=== PATIENT | female | born 1950 | race Caucasian/White ===

== ENCOUNTER 2021-10-24 10:55 | Outpatient (CLI) | payer MEDICARE, OTHER, SELFPAY ==
--- NOTE | ~2021-10-24 | US_ITS ---
US renal BI 10/24/2021 11:24 Procedure: Realtime transabdominal ultrasound of the kidneys and bladder. Indication: History of renal cysts Comparison: 09/18/2017 Findings: Renal echotexture is normal bilaterally without hydronephrosis, contour deforming mass or r enal calculus. There is a right renal cyst measuring 5 cm. The right kidney measures 9.2 cm and left kidney measures 11.3 cm. Bladder is not distended for evaluation. Impression: 1: Right renal cyst measuring 5 cm. Reviewed, dictated and finalized at location B. Impression: 1: Right renal cyst measuring 5 cm.
== END 2021-10-24 10:56 | disposition home or self-care (01) ==
LOC: ANHIMG 10:57
PROVIDERS: PCP Family Medicine; Visit Provider Family Medicine
DX: N28.9 Disorder of kidney and ureter, unspecified (principal); N28.1 Cyst of kidney, acquired
CPT/HCPCS: 76775

== ENCOUNTER 2023-05-22 09:17 | Emergency (ER) | payer MEDICARE, OTHER, SELFPAY ==
--- NOTE | ~2023-05-22 | CT_ITS ---
EXAMINATION: CT diagnostic chest w con DATE: 05/22/2023 11:13 INDICATION: follow up XR, cough TECHNIQUE: Computed tomography (CT) of the chest was performed with 100 mL Omnipaque-350 intravenous contrast. Additional 3D reconstructions utilizing coronal maximum intensity projection (MIP) were per formed. Automated exposure control and iterative reconstruction technique were employed. The dose-yony gth product was 493.26 mGy-cm. COMPARISON: Chest radiograph dated 05/22/2023 FINDINGS: Although not performed as a dedicated pulmonary embolism protocol there is good contrast opacificatio n of the pulmonary arteries and minimal respiratory motion limiting essentially diagnostic quality st udy demonstrating no pulmonary embolism. There is airspace consolidation in the anterior segment of t he right upper lobe. There is no associated volume loss or architectural distortion of the contrast o pacified pulmonary vasculature within the region of consolidation which could be most consistent with pneumonia and which corresponds to the opacities identified on the prior radiographs. No other evide nt lung disease, pulmonary edema, pleural effusion or pneumothorax. Heart size is normal. Small amoun t of atherosclerotic coronary artery calcification. Aortic valve calcification. No pericardial effusi on. Thoracic aorta is normal in caliber with no dissection. No pathologically enlarged thoracic lymph adenopathy. Cholecystectomy clips at the gallbladder fossa. Mild thoracic dextrocurvature with modera te spondylosis. IMPRESSION: 1. Right upper lobe pneumonia. Reviewed, dictated and finalized at location A. CE SERVICES ASSISTANT
--- NOTE | ~2023-05-22 | XR_ITS ---
EXAMINATION: XR chest 2V DATE: 05/22/2023 10:05 INDICATION: Right-sided chest pain and cough TECHNIQUE: PA and lateral views of the chest were obtained. COMPARISON: None FINDINGS: Increased prominence of the right hilum on the frontal projection with opacities anterior to the hilu m on the lateral projection. Mild linear atelectasis/scarring at the lateral left midlung zone. No pu lmonary edema, pleural effusion or pneumothorax. The cardiomediastinal silhouette is normal. Cholecys tectomy clips in right upper quadrant. Mild thoracic dextrocurvature with moderate spondylosis. IMPRESSION: 1. Increased prominence of the right hilum with anterior perihilar opacities which could represent pn eumonia but would consider contrast-enhanced chest CT for further evaluation to exclude perihilar mas s or lymphadenopathy. Reviewed, dictated and finalized at location A. ORATE AIRCRAFT MECHANIC IMPRESSION: 1. Increased prominence of the right hilum with anterior perihilar opacities wh ich could represent pneumonia but would consider contrast-enhanced chest CT for further evaluation to exclude perihilar mass or lymphadenopathy.
--- NOTE | 2023-05-22 09:19 | ECG_ITS ---
Measurements Intervals [place] Rate: 69 P: 47 ME: 186 QRS: 24 QRSD: 106 T: 51 QT: 390 QTc: 419 Interpretive Statements SINUS RHYTHM NONSPECIFIC ST & T-WAVE ABNORMALITY- LAT/HIGH LAT LEADS BORDERLINE ECG NO PREVIOUS ECG AVAILABLE FOR COMPARISON Electronically Signed On 05-22-2023 9:24:06 CENA by Sherif Schmid D.O.
[2023-05-22 09:28] VITALS: BP 160/49; PULSE 72; RESP 18; TEMP 37.1; O2SAT 94
[2023-05-22] MEDS: ASPIRIN 81 MG CHEWABLE TABLET 324 MG PO (09:37)
[2023-05-22 09:47] LABS: Basophils Percent Auto 0.5 % (0.2-1.2); Eosinophils Absolute Auto 0.3 K/mm3 (0-0.3); Eosinophils Percent Auto 2.9 % (0-4.4); Hematocrit 37.1 % (37.0-47.0); Hemoglobin 11.7 g/dL (12.0-15.0); Immature Granulocyte Absolute 0.02 K/mm3 (0.00-0.031); Immature Granulocyte Percent A 0.2 % (0-0.5); Lymphocytes Absolute Auto 1.59 K/mm3 (0.9-3.2); Mean Corpuscular HGB Conc 31.5 g/dl (32-36); Mean Corpuscular Hemoglobin 30.9 pg (26-34); Mean Corpuscular Volume 97.9 fl (80-100); Mean Platelet Volume 9.2 fl (7.4-10.4); Monocytes Absolute Auto 0.7 K/mm3 (0.1-0.6); Monocytes Percent Auto 7.6 % (2.6-8.5); Neutrophils Absolute Auto 6.3 K/mm3 (1.3-6.7); Neutrophils Percent Auto 70.8 % (45.5-73.1); Platelet Count Result 219 k/mm3 (150-375); Red Blood Count 3.79 M/mm3 (4.2-5.4); Red Cell Distribution Width 12.2 % (11.5-14.5); White Blood Count 8.8 K/mm3 (4.5-10.0)
[2023-05-22 10:03] LABS: Prothrombin Time 13.1 Seconds (11.1-14.7)
[2023-05-22 10:04] LABS: Partial Thromboplastin Time 27.6 SECONDS (22.3-36.8)
[2023-05-22 10:05] LABS: Alanine Aminotransferase 18 U/L (6-35); Albumin Level 3.9 g/dL (3.5-5.1); Alkaline Phosphatase 85 U/L (38-126); Anion Gap 10 mmol/L (8-16); Aspartate Amino Transferase 22 U/L (14-36); Blood Urea Nitrogen 27 mg/dL (7-17); Calcium 9.3 mg/dL (8.4-10.2); Carbon Dioxide 26 mmol/L (22-30); Chloride 101 mmol/L (98-107); Estimated CRCL calculation 33 ml/min; Estimated Glomerular Filt Rate 34; Glucose 130 mg/dL (65-110); Lipase 43 U/L (23-300); Sodium 137 mmol/L (137-145)
[2023-05-22 10:16] LABS: Troponin I 0.013 ng/mL (0.000-0.034)
[2023-05-22 10:27] VITALS: PULSE 79
--- NOTE | 2023-05-22 10:45 | ED.GENADULT ---
HPI - General Adult General Chief complaint: Chest Pain Stated complaint: Chest pain Time Seen by Provider: 05/22/23 10:27 Source: patient Mode of arrival: ambulatory Limitations: no limitations History of Present Illness HPI narrative: This is a 72-year-old female who presents to the ED with chief complaint of cough with chest pain x1 week. Reports she started to have some URI symptoms after new year's [place] so she to go home COVID test that was negative. Reports she is coughing and productive sputum with greenish tinge. Reports she had some chest pain yesterday that feels like it is radiating to the back. She states it is specifically onset with cough. Denies exertional component, syncope, nausea, vomiting, chills, fevers, abdominal pain, shortness of breath, leg swelling. No recent travel, immobilization or any history of blood clot. Related Data Home Medications Medication Instructions Recorded Confirmed metoprolol succinate 50 mg 50 mg PO DAILY 10/22/19 04/17/23 tablet,extended release 24 hr (Toprol XL) esomeprazole magnesium 20 mg 20 mg PO DAILY 03/20/21 04/17/23 capsule,delayed release (Nexium) hydrochlorothiazide 25 mg tablet 25 mg PO DAILY 02/06/23 04/17/23 Allergies Allergy/AdvReac Type Severity Reaction Status Date / Time Penicillins Allergy Unknown Unknown Verified 05/22/23 10:30 Sulfa (Sulfonamide Allergy Unknown Unknown Verified 05/22/23 10:30 Antibiotics) beet AdvReac Severe Vomiting Verified 05/22/23 10:30 acetaminophen AdvReac Mild CF Verified 05/22/23 10:30 propoxyphene AdvReac Mild CF Verified 05/22/23 10:30 Review of Systems Review of Systems: All systems as dictated in HPI [facility] Past Medical History Medical History (Updated 05/22/23 @ 11:56 by Jayce Rodriguez PA-C) Anemia BMI 37.0-37.9, adult BMI 38.0-38.9,adult Cholecystectomy planned Essential hypertension Hyperlipidemia Hypothyroidism, unspecified OA (osteoarthritis) of knee Prediabetes Surgical History Surgical History H/O: hysterectomy Family History Family History Mother Hypertension Family history of malignant neoplasm Family history of diabetes mellitus in first degree relative Family history of coronary artery disease Sibling Hypertension Family history of diabetes mellitus in first degree relative Diabetes mellitus Kidney disease Father Cerebrovascular accident Sibling , copd COPD (chronic obstructive pulmonary disease) Social History Social History Smoking status: Never smoker Second hand tobacco smoke exposure: No Alcohol intake: current Substance use: never Substance use type: does not use Lack of Transportation: No Lack of Food: Never True Current Housing: I Have Housing Concerned About Future Housing: No Difficulty Paying Gas/Electric Bills: No Difficulty Paying for Meds: No Currently Unemployed: No Education: Trade/Vocational Certificate Difficulty w/ Childcare or Family Care: No Living arrangements: with family Occupation/Education: retired 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 HEAD: Normocephalic, atraumatic. EYES: PERRLA and EOMI. ENT: Nares clear, no rhinorrhea or epistaxis. Mucous membranes moist. Oropharynx without tonsillar hypertrophy exudate or other lesions. NECK: Supple. No adenopathy or masses. CHEST: No respiratory distress. Clear to auscultation. No wheezes rales or rhonchi HEART: Regular rate and rhythm. No murmur heard. Normal peripheral pulses. ABDOMEN: Soft, nontender, nondistended, normal active bowel sounds. MSK: Normal range of motion. No edema. SKIN: Warm, dry, no rash
[2023-05-22 11:55] LABS: Influenza A QL RT-PCR Negative (Negative); Influenza B QL RT-PCR Negative (Negative); RSV RNA, RT-PCR Negative (Negative); SARS-CoV-2 RNA PCR Negative (Negative)
[2023-05-22] MEDS: AZITHROMYCIN 500 MG/NS 250 ML 500 MG/250 ML BAG 250 MG IVPB (12:17)
[2023-05-22 12:25] VITALS: BP 154/53; PULSE 72; RESP 18; O2SAT 98
[2023-05-22 13:28] VITALS: BP 148/55; PULSE 61; RESP 18; O2SAT 95
== END 2023-05-22 13:29 | disposition home or self-care (01) ==
PROVIDERS: Emergency Medicine; Emergency Provider Physician Assistant; PCP Family Medicine
DX: J18.9 Pneumonia, unspecified organism (principal); Z20.822 Contact with and (suspected) exposure to COVID-19; I10 Essential (primary) hypertension; E78.5 Hyperlipidemia, unspecified; E03.9 Hypothyroidism, unspecified; D64.9 Anemia, unspecified; M17.9 Osteoarthritis of knee, unspecified; R73.03 Prediabetes; Z90.710 Acquired absence of both cervix and uterus; Z79.84 Long term (current) use of oral hypoglycemic drugs
CPT/HCPCS: 36415; 71046; 71260; 80053; 83690; 84484; 85025; 85610; 85730; 87637; 93005; 96365; 96375; 99284; A9270; J0456; J0696; Q9967

== ENCOUNTER 2023-05-25 13:13 | Inpatient (IN) | payer MEDICARE, OTHER, SELFPAY ==
[2023-05-25] VITALS (7 sets, daily range): BP systolic 162–178; BP diastolic 50–88; PULSE 63–87; RESP 16–20; TEMP 36.2–36.6; O2SAT 96–98
--- NOTE | ~2023-05-25 | XR_ITS ---
XR chest 2V DATE: 05/25/2023 13:46 INDICATION: Chest pain, shortness of breath. Recent diagnosis of pneumonia TECHNIQUE: PA and lateral views COMPARISON: 05/2023 PA and lateral chest 05/22/2023 CTA chest FINDINGS: Mildly increased infiltrate is noted in the anterior segment of the right upper lobe since 05/2022. The remaining lung [place] appear clear. Mild cardiac megaly. Aortic calcification. No pleural effusion or pulmonary vascular congestion or pneumothorax. Status post cholecystectomy. IMPRESSION: Mildly increased anterior segment right upper lobe infiltrate since 05/22/2023 Reviewed, dictated and finalized at location A. REPAIR INSPECTOR
--- NOTE | 2023-05-25 13:16 | ECG_ITS ---
Measurements Intervals [place] Rate: 68 P: 29 FL: 181 QRS: 16 QRSD: 102 T: 29 QT: 406 QTc: 432 Interpretive Statements SINUS RHYTHM NONSPECIFIC ST & T-WAVE ABNORMALITY- INF/HIGH LAT LEADS BASELINE ARTIFACT- I, II, III, AVR, AVL, AVF BORDERLINE ECG COMPARED TO ECG 05/22/2023 09:23:47 NO SIGNIFICANT CHANGES Electronically Signed On 05-25-2023 16:12:36 ASSISTANT PROFESSOR OF FORESTRY by Sherif Schmid D.O.
--- NOTE | 2023-05-25 13:17 | PC.NURSE ---
Patient ripped BP cuff off stating it hurts too much and I cant take it right now . BP not obtained in triage
[2023-05-25 13:33] LABS: Basophils Absolute Auto 0.1 K/mm3 (0.0-0.1); Basophils Percent Auto 0.7 % (0.2-1.2); Eosinophils Absolute Auto 0.2 K/mm3 (0-0.3); Eosinophils Percent Auto 2.7 % (0-4.4); Hematocrit 35.5 % (37.0-47.0); Hemoglobin 11.3 g/dL (12.0-15.0); Immature Granulocyte Absolute 0.05 K/mm3 (0.00-0.031); Immature Granulocyte Percent A 0.6 % (0-0.5); Lymphocytes Absolute Auto 1.38 K/mm3 (0.9-3.2); Lymphocytes Percent Auto 16.2 % (18.3-44.2); Mean Corpuscular HGB Conc 31.8 g/dl (32-36); Mean Corpuscular Hemoglobin 30.9 pg (26-34); Monocytes Absolute Auto 0.6 K/mm3 (0.1-0.6); Monocytes Percent Auto 6.7 % (2.6-8.5); Neutrophils Absolute Auto 6.2 K/mm3 (1.3-6.7); Neutrophils Percent Auto 73.1 % (45.5-73.1); Platelet Count Result 272 k/mm3 (150-375); Red Blood Count 3.66 M/mm3 (4.2-5.4); Red Cell Distribution Width 11.8 % (11.5-14.5); White Blood Count 8.5 K/mm3 (4.5-10.0)
[2023-05-25 13:45] LABS: Alanine Aminotransferase 20 U/L (6-35); Albumin Level 3.8 g/dL (3.5-5.1); Alkaline Phosphatase 106 U/L (38-126); Anion Gap 11 mmol/L (8-16); Aspartate Amino Transferase 24 U/L (14-36); Bilirubin,Total 0.7 mg/dL (0.2-1.3); Blood Urea Nitrogen 26 mg/dL (7-17); Calcium 9.6 mg/dL (8.4-10.2); Carbon Dioxide 25 mmol/L (22-30); Chloride 102 mmol/L (98-107); Estimated CRCL calculation 31 ml/min; Estimated Glomerular Filt Rate 32; Glucose 159 mg/dL (65-110); Lipase 59 U/L (23-300); Potassium 3.6 mmol/L (3.4-5.0); Sodium 138 mmol/L (137-145)
[2023-05-25 13:54] LABS: Partial Thromboplastin Time 30.9 SECONDS (22.3-36.8); Prothrombin Time 13.8 Seconds (11.1-14.7)
[2023-05-25 13:57] LABS: Troponin I 0.019 ng/mL (0.000-0.034)
--- NOTE | 2023-05-25 14:18 | ED.SOB ---
HPI - SOB/Dyspnea General Chief Complaint: Shortness of Breath/Dyspnea Stated Complaint: SOB/chest pain Time Seen by Provider: 05/25/23 14:17 Source: patient and family Mode of arrival: ambulatory Limitations: no limitations History of Present Illness HPI Narrative: 72 yo female p/w SOB and CP. Dx with PNA on Friday and told to return if worsened. Has been taking antibiotics as prescribed. Her cough has become less productive but sputum is green. She has pain in her chest and back as a result of coughing. Tylenol and resting helps but when she doesn't take the acetaminophen, she finds herself in considerable pain. She has a new symptom of diarrhea which she attributes to antibiotic usage. Feels like she can't get a good deep breath. Related Data Home Medications Medication Instructions Recorded Confirmed metoprolol succinate 50 mg 50 mg PO DAILY 10/22/19 05/25/23 tablet,extended release 24 hr (Toprol XL) esomeprazole magnesium 20 mg 20 mg PO DAILY 03/20/21 05/25/23 capsule,delayed release (Nexium) hydrochlorothiazide 25 mg tablet 25 mg PO DAILY 02/06/23 05/25/23 paroxetine HCl 10 mg tablet (Paxil) 10 mg PO DAILY 05/25/23 05/25/23 Allergies Allergy/AdvReac Type Severity Reaction Status Date / Time Sulfa (Sulfonamide Allergy Unknown Unknown Verified 05/25/23 18:10 Antibiotics) beet AdvReac Severe Vomiting Verified 05/25/23 18:10 propoxyphene AdvReac Mild CF Verified 05/25/23 18:10 PMF Past Medical History Medical History Anemia Cholecystectomy planned CKD (chronic kidney disease) stage 3, GFR 30-59 ml/min Essential hypertension Hyperlipidemia Hypothyroidism, unspecified OA (osteoarthritis) of knee Pneumonia Dx 05/22/23 Prediabetes Vitamin D deficiency Surgical History Surgical History H/O: hysterectomy Family History Family History Mother Hypertension Family history of malignant neoplasm Family history of diabetes mellitus in first degree relative Family history of coronary artery disease Sibling Hypertension Family history of diabetes mellitus in first degree relative Diabetes mellitus Kidney disease Father Cerebrovascular accident Sibling , copd COPD (chronic obstructive pulmonary disease) Social History Social History Smoking status: Never smoker Second hand tobacco smoke exposure: No Alcohol intake: never Substance use: never Substance use type: does not use Do You Feel Safe in your Home?: Yes Lack of Transportation: No Lack of Food: Never True Current Housing: I Have Housing Concerned About Future Housing: No Difficulty Paying Gas/Electric Bills: No Difficulty Paying for Meds: No Currently Unemployed: No Education: Don't Know Difficulty w/ Childcare or Family Care: No Living arrangements: with family Occupation/Education: retired 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 HEAD: Normocephalic, atraumatic. EYES: Non injected, non icteric ENT: Nares clear, no rhinorrhea or epistaxis. NECK: Supple. CHEST: No respiratory distress. Diminished breath sounds on the right (primarily at the base) HEART: Regular rate and rhythm. Grade 2 of 6 holosystolic murmur. ABDOMEN: Soft, nondistended. EXTREMITIES: Normal range of motion. No edema. SKIN: Warm, dry, no rash. NEURO: No focal deficits. Alert and oriented x3. PSYCH: Normal mood and affect. Course Vital Signs Vital signs: Vital Signs Temperature 97.9 F 05/25/23 13:14 Pulse Rate 76 05/25/23 13:14 Respiratory Rate 20 05/25/23 13:14
[2023-05-25] MEDS: SODIUM CHLORIDE 0.9% IV 1,000 ML 999 ML IV CONT (14:48)
[2023-05-25] MEDS: DOXYCYCLINE 100 MG/NS 100 ML 100 MG/100 ML BAG IVPB (15:50)
--- NOTE | 2023-05-25 16:27 | ECG_ITS ---
Measurements Intervals [place] Rate: 64 P: 57 NM: 201 QRS: 33 QRSD: 107 T: 49 QT: 435 QTc: 449 Interpretive Statements SINUS RHYTHM NONSPECIFIC ST & T-WAVE ABNORMALITY- INF/LAT LEADS BASELINE ARTIFACT- II, III, AVL, AVF, V1 BORDERLINE ECG COMPARED TO ECG 05/25/2023 13:23:44 NO SIGNIFICANT CHANGES Electronically Signed On 05-26-2023 14:53:37 FINGERER by Sherif Schmid D.O.
[2023-05-25 16:56] LABS: Troponin I 0.017 ng/mL (0.000-0.034)
--- NOTE | 2023-05-25 17:43 | ADMGEN ---
This patient, Renae Elise, was admitted to [facility] Surg Room 311-01. Patient/family oriented to hospital policies and general routines including ID bracelet, bed and alarms, visiting hours, pain management, procedures, bathroom and other care routines, personal items, smoking policy, room service/diet, and visiting hours. Information on how to activate the Rapid Response Team has been discussed. Patient/Family are encouraged to report perceived risks to care and to ask questions if they do not understand what they are told or what they should do.
--- NOTE | 2023-05-25 18:08 | PM.IMHP ---
H&P: HPI History of Present Illness Date/Time: 05/25/23 18:08 Chief Complaint: SOB, Weakness, PNA Narrative: 72-year-old female presents here with shortness of breath and chest pain with past medical history of chronic kidney disease, anemia, HTN, HLD, hypothyroidism, osteoarthritis, prediabetic, and aortic stenosis. Patient reports that she was diagnosed with pneumonia on and presented here today due to worsening symptoms. Was originally discharged home with Augmentin and doxycycline for a 2 week course. Reports mild increase in shortness of breath and is now experiencing some pleuritic chest pain through her right ribcage and back that worsens with movement and coughing. Reports she has been unable to use her arms due to aggravating this pain. It is not constant and it is described as achy and slightly sharp. Patient also reports generalized fatigue. Cough has mainly been productive in the mornings, otherwise dry. No current fevers. ED workup revealed normal white count, stable anemia, creatinine at baseline, and negative trop x2. CXR showed mildly increased anterior segment right upper lobe infiltrate since 05/22/2023. Review of Systems Review of Systems: All systems reviewed & are unremarkable except as noted in HPI and below PMFSH Past Medical History Medical History Anemia Cholecystectomy planned CKD (chronic kidney disease) stage 3, GFR 30-59 ml/min Essential hypertension Hyperlipidemia Hypothyroidism, unspecified OA (osteoarthritis) of knee Prediabetes Vitamin D deficiency Surgical History Surgical History H/O: hysterectomy Family History Family History Mother Hypertension Family history of malignant neoplasm Family history of diabetes mellitus in first degree relative Family history of coronary artery disease Sibling Hypertension Family history of diabetes mellitus in first degree relative Diabetes mellitus Kidney disease Father Cerebrovascular accident Sibling , copd COPD (chronic obstructive pulmonary disease) Social History Social History Smoking status: Never smoker Second hand tobacco smoke exposure: No Alcohol intake: never Substance use: never Substance use type: does not use Do You Feel Safe in your Home?: Yes Lack of Transportation: No Lack of Food: Never True Current Housing: I Have Housing Concerned About Future Housing: No Difficulty Paying Gas/Electric Bills: No Difficulty Paying for Meds: No Currently Unemployed: No Education: Don't Know Difficulty w/ Childcare or Family Care: No Living arrangements: with family Occupation/Education: retired 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 Gender identity (if verbalized by the patient): Female Spiritual care concerns: No Meds Home Medications and Allergies Home Medications Medication Instructions Recorded Confirmed Type metoprolol succinate 50 mg 50 mg PO DAILY 10/22/19 05/25/23 History tablet,extended release 24 hr (Toprol XL) esomeprazole magnesium 20 mg 20 mg PO DAILY 03/20/21 05/25/23 History capsule,delayed release (Nexium) levothyroxine 75 mcg tablet 75 mcg PO DAILY #90 tabs 10/22/22 05/25/23 Rx (Levoxyl) losartan 100 mg tablet 100 mg PO DAILY #90 tabs 10/22/22 05/25/23 Rx simvastatin 40 mg tablet (Zocor) 40 mg PO DAILY #90 tabs 11/26/22 05/25/23 Rx hydrochlorothiazide 25 mg tablet 25 mg PO DAILY 02/06/23 05/25/23 History empagliflozin 10 mg tablet 10 mg PO DAILY #90 tabs 02/27/23 05/25/23 Rx (Jardiance) paroxetine HCl 10 mg tablet (Paxil) 10 mg PO DAILY 05/25/23 05/25/23 History Allergies Allergy/AdvReac Type Severity Reaction Status Date / Time Sulfa (Sulfonamide Allerg
[2023-05-25] MEDS: LACTATED RINGERS 1,000 ML 75 ML IV CONT (18:37)
[2023-05-25 19:03] LABS: Influenza A QL RT-PCR Negative (Negative); Influenza B QL RT-PCR Negative (Negative); RSV RNA, RT-PCR Negative (Negative); SARS-CoV-2 RNA PCR Negative (Negative)
[2023-05-25 20:21] LABS: Troponin I < 0.012 ng/mL (0.000-0.034)
[2023-05-26] MEDS: ACETAMINOPHEN 500 MG TABLET 1000 MG PO ×2 (00:31→12:26)
[2023-05-26] MEDS: DOXYCYCLINE 100 MG/NS 100 ML 100 MG/100 ML BAG IVPB ×2 (03:19→16:42)
[2023-05-26 03:23] LABS: Glucose Point of Care 81 mg/dl (65-105)
[2023-05-26] MEDS: LEVOTHYROXINE SODIUM 75 MCG TABLET PO (04:49)
[2023-05-26 06:00] VITALS: BP 158/51; PULSE 74; RESP 18; TEMP 36.3; O2SAT 98
[2023-05-26 07:06] LABS: Basophils Absolute Auto 0.1 K/mm3 (0.0-0.1); Basophils Percent Auto 0.7 % (0.2-1.2); Eosinophils Absolute Auto 0.3 K/mm3 (0-0.3); Eosinophils Percent Auto 4.1 % (0-4.4); Hematocrit 32.2 % (37.0-47.0); Hemoglobin 10.2 g/dL (12.0-15.0); Immature Granulocyte Absolute 0.06 K/mm3 (0.00-0.031); Immature Granulocyte Percent A 0.8 % (0-0.5); Lymphocytes Percent Auto 26.2 % (18.3-44.2); Mean Corpuscular HGB Conc 31.7 g/dl (32-36); Mean Corpuscular Volume 97.9 fl (80-100); Mean Platelet Volume 8.8 fl (7.4-10.4); Monocytes Absolute Auto 0.5 K/mm3 (0.1-0.6); Monocytes Percent Auto 6.7 % (2.6-8.5); Neutrophils Absolute Auto 4.7 K/mm3 (1.3-6.7); Neutrophils Percent Auto 61.5 % (45.5-73.1); Platelet Count Result 246 k/mm3 (150-375); Red Blood Count 3.29 M/mm3 (4.2-5.4); Red Cell Distribution Width 11.9 % (11.5-14.5); White Blood Count 7.6 K/mm3 (4.5-10.0)
[2023-05-26 07:10] LABS: Alanine Aminotransferase 20 U/L (6-35); Albumin Level 3.3 g/dL (3.5-5.1); Alkaline Phosphatase 93 U/L (38-126); Anion Gap 8 mmol/L (8-16); Aspartate Amino Transferase 22 U/L (14-36); Bilirubin,Total 0.4 mg/dL (0.2-1.3); Blood Urea Nitrogen 29 mg/dL (7-17); Calcium 8.9 mg/dL (8.4-10.2); Carbon Dioxide 28 mmol/L (22-30); Chloride 104 mmol/L (98-107); Estimated CRCL calculation 35 ml/min; Estimated Glomerular Filt Rate 37; Glucose 108 mg/dL (65-110); Potassium 3.8 mmol/L (3.4-5.0); Sodium 140 mmol/L (137-145)
[2023-05-26 07:51] LABS: Hemoglobin A1C 5.5 % (<5.7)
[2023-05-26 08:00] VITALS: PULSE 74; RESP 18; O2SAT 98
[2023-05-26] MEDS: SIMVASTATIN 20 MG TABLET 40 MG PO (08:53)
[2023-05-26] MEDS: PANTOPRAZOLE 40 MG TABLET PO (08:54)
[2023-05-26] MEDS: METOPROLOL SUCCINATE EXT REL 50 MG TABCR PO (08:54)
[2023-05-26] MEDS: PARoxetine 10 MG TABLET PO (08:54)
[2023-05-26] MEDS: EMPAGLIFLOZIN 10 MG TABLET PO (08:54)
[2023-05-26] MEDS: hydroCHLOROthiazide 25 MG TABLET PO (08:54)
[2023-05-26] MEDS: LOSARTAN POTASSIUM 100 MG TABLET PO (08:54)
[2023-05-26] MEDS: guaiFENesin 12 HR 600 MG TABCR PO ×2 (08:54→20:08)
[2023-05-26] MEDS: BENZONATATE 100 MG CAPSULE PO ×3 (08:54→16:42)
[2023-05-26] MEDS: ENOXAPARIN 40 MG/0.4 ML SYRINGE SUB-Q (09:01)
[2023-05-26 09:08] LABS: Magnesium 1.9 mg/dL (1.6-2.3)
--- NOTE | 2023-05-26 11:18 | PCPTNOTE ---
Attempted PT evaluation, pt refused stating she is independent in the room and denies needs after hospitalization. Will contact hospitalist. RN aware.
[2023-05-26 12:28] LABS: Glucose Point of Care 98 mg/dl (65-105)
[2023-05-26 14:00] VITALS: BP 185/64; PULSE 80; RESP 18; TEMP 36.2; O2SAT 97
[2023-05-26 14:19] VITALS: PULSE 74; RESP 18; O2SAT 98
[2023-05-26] MEDS: LACTATED RINGERS 1,000 ML 75 ML IV CONT (14:30)
--- NOTE | 2023-05-26 15:19 | PM.IMPN ---
Progress Note: A&P Assessment and Plan (1) Right upper lobe pneumonia: Qualifiers: Pneumonia type: due to unspecified organism Qualified Code(s): J18.9 - Pneumonia, unspecified organism Code(s): J18.9 - Pneumonia, unspecified organism Status: Acute Assessment and Plan: -continue telemetry monitoring -Oxygen therapy titration p.r.n. as needed to keep SpO2 above 92% -Continue ceftriaxone and doxycycline 1st dose given in the ED - sputum culture- pending - continue supportive measures. -obtain urine Legionella/strep (2) CKD (chronic kidney disease) stage 3, GFR 30-59 ml/min: Code(s): N18.30 - Chronic kidney disease, stage 3 unspecified Status: Chronic Assessment and Plan: creatinine is 1.6 with GFR of 32 which is consistent with her known disease. monitor I&O repeat labs in the a.m. (3) Essential hypertension: Code(s): I10 - Essential (primary) hypertension Status: Acute Assessment and Plan: Chronic, continue home medications Monitor vitals q.4 hours (4) Prediabetes: Code(s): R73.03 - Prediabetes Status: Acute Assessment and Plan: Last A1c on 10/17/2022 at 5.9%. Continue home Jardiance. Last glucose 159. Hypoglycemia protocol POC blood glucose q.12 hour and PRN (5) Hypothyroidism, unspecified: Qualifiers: Hypothyroidism type: unspecified Qualified Code(s): E03.9 - Hypothyroidism, unspecified Code(s): E03.9 - Hypothyroidism, unspecified Status: Acute Assessment and Plan: Continue home Synthroid. Last TSH 2.2 on 10/17/2022. Plan Home Meds/Chronic Conditions -all home medications continued Diet: Heart healthy GI Prophylaxis: Continue home Nexium DVT Prophylaxis: SCDs, Lovenox Lines: pIV Code Status: Full Code Subjective Date/time seen: 05/26/23 15:19 Interval history: 72-year-old female presents here with shortness of breath and chest pain with past medical history of chronic kidney disease, anemia, HTN, HLD, hypothyroidism, osteoarthritis, prediabetic, and aortic stenosis.? Patient reports that she was diagnosed with pneumonia on and presented here today due to worsening symptoms.? Was originally discharged home with Augmentin and doxycycline for a 2 week course.? Reports mild increase in shortness of breath and is now experiencing some pleuritic chest pain through her right ribcage and back that worsens with movement and coughing.? Reports she has been unable to use her arms due to aggravating this pain.? It is not constant and it is described as achy and slightly sharp.? Patient also reports generalized fatigue.? Cough has mainly been productive in the mornings, otherwise dry.? No current fevers.? ED workup revealed normal white count, stable anemia, creatinine at baseline, and negative trop x2.? CXR showed mildly increased anterior segment right upper lobe infiltrate since 05/22/2023. 05/26/2023: pt seen this am, she is resting with eyes closed easily arouses, denies any c/o at this. She reports no overnight events. She reports a mild non-productive cough this morning. Review of Systems Review of Systems: All systems reviewed & are unremarkable except as noted in HPI and below Exam Const: General: comfortable and no acute distress HENMT: Face/Nose/Sinus: Normal nares present Mouth: Yes dry mucous membranes Eyes: General: appearance normal, both eyes and all related structures Sclera: sclerae normal Pupils: Equal, round and reactive pupils present EOM: EOMs intact bilaterally Resp: Effort & Inspection: normal respiratory effort Other: Absent/diminished in right lower lobe extending into right middle lobe. No crackles, wheezing. No increased work of breathing or tachypnea. Cardio: Rate: regular rate Rhythm: regular rhythm Other: S1-S2 present without murmur, rub, ectopy Skin: General skin exam: normal color and no cedric
[2023-05-26 20:20] VITALS: BP 210/98; PULSE 68; RESP 16; TEMP 36.3; O2SAT 99
[2023-05-26 20:56] LABS: Glucose Point of Care 171 mg/dl (65-105)
[2023-05-26] MEDS: hydrALAZINE HCL 20 MG/ML VIAL 10 MG IV PUSH (22:04)
[2023-05-27] MEDS: ACETAMINOPHEN 500 MG TABLET 1000 MG PO ×2 (00:14→06:52)
[2023-05-27 02:55] VITALS: BP 194/65; PULSE 71; TEMP 36.5; O2SAT 96
[2023-05-27] MEDS: DOXYCYCLINE 100 MG/NS 100 ML 100 MG/100 ML BAG IVPB ×2 (04:07→17:44)
[2023-05-27 04:40] VITALS: BP 191/61; PULSE 71; RESP 16; TEMP 37.1; O2SAT 96
[2023-05-27] MEDS: hydrALAZINE HCL 20 MG/ML VIAL 10 MG IV PUSH ×2 (04:49→23:30)
[2023-05-27] MEDS: LEVOTHYROXINE SODIUM 75 MCG TABLET PO (06:48)
[2023-05-27 06:51] VITALS: BP 192/62
[2023-05-27 07:08] LABS: Basophils Absolute Auto 0.1 K/mm3 (0.0-0.1); Basophils Percent Auto 0.6 % (0.2-1.2); Eosinophils Absolute Auto 0.3 K/mm3 (0-0.3); Eosinophils Percent Auto 4.3 % (0-4.4); Hematocrit 32.1 % (37.0-47.0); Hemoglobin 10.3 g/dL (12.0-15.0); Immature Granulocyte Absolute 0.06 K/mm3 (0.00-0.031); Immature Granulocyte Percent A 0.8 % (0-0.5); Lymphocytes Absolute Auto 2.07 K/mm3 (0.9-3.2); Lymphocytes Percent Auto 26.2 % (18.3-44.2); Mean Corpuscular HGB Conc 32.1 g/dl (32-36); Mean Corpuscular Hemoglobin 30.8 pg (26-34); Mean Corpuscular Volume 96.1 fl (80-100); Mean Platelet Volume 8.9 fl (7.4-10.4); Monocytes Absolute Auto 0.5 K/mm3 (0.1-0.6); Monocytes Percent Auto 6.8 % (2.6-8.5); Neutrophils Absolute Auto 4.8 K/mm3 (1.3-6.7); Neutrophils Percent Auto 61.3 % (45.5-73.1); Platelet Count Result 258 k/mm3 (150-375); Red Blood Count 3.34 M/mm3 (4.2-5.4); Red Cell Distribution Width 11.9 % (11.5-14.5); White Blood Count 7.9 K/mm3 (4.5-10.0)
[2023-05-27 07:19] LABS: Alanine Aminotransferase 19 U/L (6-35); Albumin Level 3.3 g/dL (3.5-5.1); Alkaline Phosphatase 98 U/L (38-126); Anion Gap 9 mmol/L (8-16); Aspartate Amino Transferase 22 U/L (14-36); Bilirubin,Total 0.4 mg/dL (0.2-1.3); Blood Urea Nitrogen 25 mg/dL (7-17); Calcium 9.2 mg/dL (8.4-10.2); Carbon Dioxide 25 mmol/L (22-30); Chloride 105 mmol/L (98-107); Estimated CRCL calculation 38 ml/min; Estimated Glomerular Filt Rate 40; Glucose 97 mg/dL (65-110); Magnesium 1.7 mg/dL (1.6-2.3); Potassium 3.7 mmol/L (3.4-5.0); Sodium 139 mmol/L (137-145)
[2023-05-27 08:28] LABS: Glucose Point of Care 99 mg/dl (65-105)
[2023-05-27] MEDS: guaiFENesin 12 HR 600 MG TABCR PO ×2 (09:02→22:05)
[2023-05-27] MEDS: BENZONATATE 100 MG CAPSULE PO ×2 (09:02→17:11)
[2023-05-27] MEDS: EMPAGLIFLOZIN 10 MG TABLET PO (09:03)
[2023-05-27] MEDS: hydroCHLOROthiazide 25 MG TABLET PO (09:03)
[2023-05-27] MEDS: PANTOPRAZOLE 40 MG TABLET PO (09:03)
[2023-05-27] MEDS: SIMVASTATIN 20 MG TABLET 40 MG PO (09:03)
[2023-05-27] MEDS: ENOXAPARIN 40 MG/0.4 ML SYRINGE SUB-Q (09:03)
[2023-05-27] MEDS: METOPROLOL SUCCINATE EXT REL 50 MG TABCR PO (09:03)
[2023-05-27] MEDS: LOSARTAN POTASSIUM 100 MG TABLET PO (09:03)
[2023-05-27] MEDS: PARoxetine 10 MG TABLET PO (09:03)
--- NOTE | 2023-05-27 11:53 | PM.IMPN ---
Progress Note: A&P Assessment and Plan (1) Right upper lobe pneumonia: Qualifiers: Pneumonia type: due to unspecified organism Qualified Code(s): J18.9 - Pneumonia, unspecified organism Code(s): J18.9 - Pneumonia, unspecified organism Status: Acute Assessment and Plan: -continue telemetry monitoring -Oxygen therapy titration p.r.n. as needed to keep SpO2 above 92% -Continue IV ceftriaxone and doxycycline q. 24 hrs - sputum culture- pending - continue supportive measures. - urine Legionella/strep pending (2) CKD (chronic kidney disease) stage 3, GFR 30-59 ml/min: Code(s): N18.30 - Chronic kidney disease, stage 3 unspecified Status: Chronic Assessment and Plan: creatinine is 1.3 with GFR of 40 monitor I&O repeat labs in the a.m. (3) Essential hypertension: Code(s): I10 - Essential (primary) hypertension Status: Acute Assessment and Plan: Chronic, continue home medications Monitor vitals q.4 hours (4) Prediabetes: Code(s): R73.03 - Prediabetes Status: Acute Assessment and Plan: Last A1c on 10/17/2022 at 5.9%. Continue home Jardiance. Last glucose 159. Hypoglycemia protocol POC blood glucose q.12 hour and PRN (5) Hypothyroidism, unspecified: Qualifiers: Hypothyroidism type: unspecified Qualified Code(s): E03.9 - Hypothyroidism, unspecified Code(s): E03.9 - Hypothyroidism, unspecified Status: Acute Assessment and Plan: Continue home Synthroid. Last TSH 2.2 on 10/17/2022. Plan Plan to discharge pt in the a.m with out-pt ABX Home Meds/Chronic Conditions -all home medications continued Diet: Heart healthy GI Prophylaxis: Continue home Nexium DVT Prophylaxis: SCDs, Lovenox Lines: pIV Code Status: Full Code Subjective Date/time seen: 05/27/23 11:53 Interval history: 72-year-old female presents here with shortness of breath and chest pain with past medical history of chronic kidney disease, anemia, HTN, HLD, hypothyroidism, osteoarthritis, prediabetic, and aortic stenosis.? Patient reports that she was diagnosed with pneumonia on and presented here today due to worsening symptoms.? Was originally discharged home with Augmentin and doxycycline for a 2 week course.? Reports mild increase in shortness of breath and is now experiencing some pleuritic chest pain through her right ribcage and back that worsens with movement and coughing.? Reports she has been unable to use her arms due to aggravating this pain.? It is not constant and it is described as achy and slightly sharp.? Patient also reports generalized fatigue.? Cough has mainly been productive in the mornings, otherwise dry.? No current fevers.? ED workup revealed normal white count, stable anemia, creatinine at baseline, and negative trop x2.? CXR showed mildly increased anterior segment right upper lobe infiltrate since 05/22/2023. 05/26/2023:?pt seen this am, she is resting with eyes closed easily arouses, denies any c/o at this. She reports no overnight events. She reports a mild non-productive cough this morning. 05/27/2023: did not sleep well, c/o ongoing non-productive cough, weakness. Denies sob, chest pain, fever or chills. Review of Systems Review of Systems: All systems reviewed & are unremarkable except as noted in HPI and below Exam Const: General: comfortable and no acute distress HENMT: Face/Nose/Sinus: Normal nares present Mouth: Yes dry mucous membranes Eyes: General: appearance normal, both eyes and all related structures Sclera: sclerae normal Pupils: Equal, round and reactive pupils present EOM: EOMs intact bilaterally Resp: Effort & Inspection: normal respiratory effort Other: Absent/diminished in right lower lobe extending into right middle lobe. No crackles, wheezing. No increased work of breathing or tachypnea. Cardio: Rate: regular rate Rhythm: regular rhyt
[2023-05-27 14:00] VITALS: BP 166/59; PULSE 73; RESP 14; TEMP 36.7; O2SAT 96
[2023-05-27] MEDS: LACTATED RINGERS 1,000 ML 75 ML IV CONT (17:43)
[2023-05-27 20:00] VITALS: PULSE 65; RESP 18; O2SAT 95
[2023-05-27 21:15] VITALS: BP 205/65; PULSE 65; RESP 18; TEMP 36.7; O2SAT 95
[2023-05-27 21:15] LABS: Glucose Point of Care 95 mg/dl (65-105)
[2023-05-28] VITALS (7 sets, daily range): BP systolic 138–226; BP diastolic 49–88; PULSE 63–79; RESP 16–18; TEMP 35.9–36.8; O2SAT 93–98
--- NOTE | 2023-05-28 04:23 | PM.EVENT ---
Event Note Event Note Event Note: Nursing staff contacted me at approximately 04:10 a.m. due to the patient being hypertensive. On review of the patient's chart patient has actually been hypertension for most of the hospital stay. She had been receiving q.6 hours hydralazine as needed for systolic blood pressures greater than 160 or 170 (? ? ) I think. However this order was reportedly discontinued by the daytime provider. The patient's blood pressures have been for the most part has between 160 and 190 for the hospitalization. Tonight the patient's blood pressures have been in the 200s to 230s range. I am reinstituting the p.r.n. hydralazine but increasing the dose to 20 as the patient reports nursing staff that her blood pressures are not usually that high. I am stopping the patient's IV fluids as the hospitalist provider note states that the patient is anticipated to potentially go home in regards to her pneumonia. She is eating and drinking well according to the nursing staff. Will change the patient's vital signs to q.4 hours given how high her blood pressures are she needs closer monitoring. The patient would benefit from adjustment of her home medications and would likely benefit from a 4th antihypertensive such as Norvasc or Procardia as these are a once a day medication and as such would likely be better for compliance.
[2023-05-28] MEDS: DOXYCYCLINE 100 MG/NS 100 ML 100 MG/100 ML BAG IVPB (04:44)
[2023-05-28] MEDS: hydrALAZINE HCL 20 MG/ML VIAL IV PUSH ×2 (04:45→20:50)
[2023-05-28 06:26] LABS: Basophils Absolute Auto 0.1 K/mm3 (0.0-0.1); Basophils Percent Auto 0.8 % (0.2-1.2); Eosinophils Absolute Auto 0.3 K/mm3 (0-0.3); Eosinophils Percent Auto 3.4 % (0-4.4); Hematocrit 36.1 % (37.0-47.0); Hemoglobin 11.5 g/dL (12.0-15.0); Immature Granulocyte Absolute 0.11 K/mm3 (0.00-0.031); Immature Granulocyte Percent A 1.2 % (0-0.5); Lymphocytes Percent Auto 24.9 % (18.3-44.2); Mean Corpuscular HGB Conc 31.9 g/dl (32-36); Mean Corpuscular Hemoglobin 30.8 pg (26-34); Mean Corpuscular Volume 96.8 fl (80-100); Mean Platelet Volume 8.4 fl (7.4-10.4); Monocytes Absolute Auto 0.4 K/mm3 (0.1-0.6); Monocytes Percent Auto 4.9 % (2.6-8.5); Neutrophils Absolute Auto 5.7 K/mm3 (1.3-6.7); Neutrophils Percent Auto 64.8 % (45.5-73.1); Platelet Count Result 313 k/mm3 (150-375); Red Blood Count 3.73 M/mm3 (4.2-5.4); Red Cell Distribution Width 12.2 % (11.5-14.5); White Blood Count 8.8 K/mm3 (4.5-10.0)
[2023-05-28 06:40] LABS: Alanine Aminotransferase 21 U/L (6-35); Albumin Level 3.8 g/dL (3.5-5.1); Alkaline Phosphatase 111 U/L (38-126); Anion Gap 11 mmol/L (8-16); Aspartate Amino Transferase 21 U/L (14-36); Bilirubin,Total 0.4 mg/dL (0.2-1.3); Blood Urea Nitrogen 22 mg/dL (7-17); Calcium 9.8 mg/dL (8.4-10.2); Carbon Dioxide 25 mmol/L (22-30); Chloride 105 mmol/L (98-107); Estimated CRCL calculation 38 ml/min; Estimated Glomerular Filt Rate 40; Glucose 107 mg/dL (65-110); Magnesium 1.8 mg/dL (1.6-2.3); Potassium 3.8 mmol/L (3.4-5.0); Sodium 141 mmol/L (137-145)
[2023-05-28 08:06] LABS: Glucose Point of Care 98 mg/dl (65-105)
[2023-05-28] MEDS: SIMVASTATIN 20 MG TABLET 40 MG PO (08:38)
[2023-05-28] MEDS: BENZONATATE 100 MG CAPSULE PO ×3 (08:38→17:38)
[2023-05-28] MEDS: PARoxetine 10 MG TABLET PO (08:38)
[2023-05-28] MEDS: EMPAGLIFLOZIN 10 MG TABLET PO (08:38)
[2023-05-28] MEDS: METOPROLOL SUCCINATE EXT REL 50 MG TABCR PO (08:38)
[2023-05-28] MEDS: hydroCHLOROthiazide 25 MG TABLET PO (08:38)
[2023-05-28] MEDS: ENOXAPARIN 40 MG/0.4 ML SYRINGE SUB-Q (08:38)
[2023-05-28] MEDS: guaiFENesin 12 HR 600 MG TABCR PO ×2 (08:39→20:26)
[2023-05-28] MEDS: PANTOPRAZOLE 40 MG TABLET PO (08:39)
[2023-05-28] MEDS: LOSARTAN POTASSIUM 100 MG TABLET PO (08:39)
[2023-05-28] MEDS: ACETAMINOPHEN 500 MG TABLET 1000 MG PO (10:01)
[2023-05-28] MEDS: LEVOTHYROXINE SODIUM 75 MCG TABLET PO (10:01)
[2023-05-28] MEDS: amLODIPine BESYLATE 5 MG TABLET 10 MG PO (10:02)
--- NOTE | 2023-05-28 14:30 | PM.IMPN ---
Progress Note: A&P Assessment and Plan (1) Benign hypertension with chronic kidney disease: Code(s): I12.9 - Hypertensive chronic kidney disease with stage 1 through stage 4 chronic kidney disease, or unspecified chronic kidney disease Status: Acute (2) Hyperlipidemia: Qualifiers: Hyperlipidemia type: mixed hyperlipidemia Qualified Code(s): E78.2 - Mixed hyperlipidemia Code(s): E78.5 - Hyperlipidemia, unspecified Status: Acute (3) Hypothyroidism, unspecified: Qualifiers: Hypothyroidism type: unspecified Qualified Code(s): E03.9 - Hypothyroidism, unspecified Code(s): E03.9 - Hypothyroidism, unspecified Status: Acute (4) BMI over 35: Status: Acute (5) Right upper lobe pneumonia: Qualifiers: Pneumonia type: due to unspecified organism Qualified Code(s): J18.9 - Pneumonia, unspecified organism Code(s): J18.9 - Pneumonia, unspecified organism Status: Acute Plan pneumonia right upper lobe Her continue ceftriaxone and doxycycline. transit to oral antibiotics on discharge Continue titrate oxygen keeping saturation above 92%. Continue tele monitoring. Continue Tessalon Perles Hypertension uncontrolled. Systolics running high in 200/1010. Continue hydralazine IV. Added amlodipine 10 mg q.day. Continue hydrochlorothiazide, Cozaar, metoprolol Will monitor blood pressure closely CRF And gentle hydration. Avoid nephrotoxic drugs. Monitor antihypertensive drugs Avoid NSAIDs. Routine CMP monitor GFR. Monitor electrolytes potassium levels. Dose antibiotics depending on creatinine clearance Obesity. Diet exercise weight loss. Monitor blood sugars routinely. Currently on Jardiance for hemoglobin A1c of 5.9. Hypothyroidism. Last TSH is 2.2 continue Synthroid Subjective Date/time seen: 05/28/23 14:30 Interval history: Patient doing well cough much improved no chest pain or shortness of breath did have some headaches which improved after taking amlodipine 10 mg Review of Systems Review of Systems: All systems reviewed & are unremarkable except as noted in HPI and below Exam Narrative: GENERAL: Well appearing, no acute distress. HEAD: Normocephalic, atraumatic. NECK: Supple. No adenopathy, no masses. RESPIRATORY: respirations nonlabored. , no rales, wheezing. CARDIOVASCULAR: Regular rate and rhythm without murmurs, . Peripheral pulses 2+ and equal bilaterally. ABDOMINAL: Soft, nontender, nondistended, no hepatosplenomegaly. Normoactive BS. MUSCULOSKELETAL: no Epigastric and no hypochondrial tenderness SKIN: Warm, dry, NEURO: A&O X3. Moves all extremities Objective Data Vital Signs Vital Signs: Vital Signs - 24 hr 05/27/23 21:15 05/27/23 20:00 05/28/23 02:44 Temperature 36.7 C Pulse Rate 65 65 Respiratory Rate 18 18 Blood Pressure 205/65 H 198/88 H Pulse Oximetry 95 95 Oxygen Delivery Room Air 05/28/23 02:35 05/28/23 05:21 05/28/23 08:38 Temperature 36.4 C 35.9 C L Pulse Rate 79 71 74 Respiratory Rate 18 18 Blood Pressure 226/72 H 177/54 H Pulse Oximetry 93 97 Oxygen Delivery Intake/Output Intake/Output: Intake & Output 05/25/23 05/26/23 05/27/23 05/28/23 23:59 23:59 23:59 23:59 Intake Total 1150 2740 3120 1200 Output Total 1500 1350 Balance 1150 1240 1770 1200 Meds/Results Medications: Active Medications Generic Name Dose Route Start Last Admin Trade Name Freq PRN Reason Stop Dose Admin Acetaminophen 1,000 mg 05/26/23 00:04 05/28/23 10:01 Acetaminophen 500 Mg Tablet PO 1,000 mg Q6H PRN Administration Mild Pain (1-3) or Fever Amlodipine Besylate 10 mg 05/28/23 09:00 05/28/23 10:02 Amlodipine Besylate 5 Mg Tablet PO 10 mg QAM RICKY Administration Benzocaine 1 lozenge 05/26/23 00:11 Benzocaine/Menthol (*Bkc) 18 Ea Lozenge PO PRN PRN Sore Throat Benzonatate 100 mg 05/26/23 09:00
[2023-05-28] MEDS: DOXYCYCLINE HYCLATE 100 MG TABLET PO (18:12)
[2023-05-28 21:14] LABS: Glucose Point of Care 126 mg/dl (65-105)
[2023-05-28 21:54] LABS: Pneumococcal Antigen Urine Not Detected (Not Detected)
[2023-05-29 01:47] LABS: Legionella pneumophila Ag Ur Not Detected (Not Detected)
[2023-05-29 05:21] VITALS: BP 135/46; PULSE 72; RESP 18; TEMP 37.6; O2SAT 96
[2023-05-29] MEDS: LEVOTHYROXINE SODIUM 75 MCG TABLET PO (06:20)
[2023-05-29 06:21] LABS: Basophils Absolute Auto 0.1 K/mm3 (0.0-0.1); Basophils Percent Auto 0.6 % (0.2-1.2); Eosinophils Absolute Auto 0.3 K/mm3 (0-0.3); Eosinophils Percent Auto 3.8 % (0-4.4); Hematocrit 33.5 % (37.0-47.0); Hemoglobin 10.3 g/dL (12.0-15.0); Immature Granulocyte Absolute 0.09 K/mm3 (0.00-0.031); Immature Granulocyte Percent A 1.1 % (0-0.5); Lymphocytes Percent Auto 22.7 % (18.3-44.2); Mean Corpuscular HGB Conc 30.7 g/dl (32-36); Mean Corpuscular Hemoglobin 30.6 pg (26-34); Mean Corpuscular Volume 99.4 fl (80-100); Mean Platelet Volume 8.6 fl (7.4-10.4); Monocytes Absolute Auto 0.5 K/mm3 (0.1-0.6); Monocytes Percent Auto 6.2 % (2.6-8.5); Neutrophils Absolute Auto 5.2 K/mm3 (1.3-6.7); Neutrophils Percent Auto 65.6 % (45.5-73.1); Platelet Count Result 264 k/mm3 (150-375); Red Blood Count 3.37 M/mm3 (4.2-5.4); Red Cell Distribution Width 12.4 % (11.5-14.5); White Blood Count 7.9 K/mm3 (4.5-10.0)
[2023-05-29 06:31] LABS: Alanine Aminotransferase 16 U/L (6-35); Albumin Level 3.6 g/dL (3.5-5.1); Alkaline Phosphatase 99 U/L (38-126); Anion Gap 12 mmol/L (8-16); Aspartate Amino Transferase 21 U/L (14-36); Bilirubin,Total 0.4 mg/dL (0.2-1.3); Blood Urea Nitrogen 30 mg/dL (7-17); Calcium 9.6 mg/dL (8.4-10.2); Carbon Dioxide 24 mmol/L (22-30); Chloride 104 mmol/L (98-107); Estimated CRCL calculation 35 ml/min; Estimated Glomerular Filt Rate 37; Glucose 103 mg/dL (65-110); Magnesium 1.8 mg/dL (1.6-2.3); Potassium 3.8 mmol/L (3.4-5.0); Sodium 140 mmol/L (137-145)
[2023-05-29 08:38] LABS: Glucose Point of Care 101 mg/dl (65-105)
[2023-05-29] MEDS: amLODIPine BESYLATE 5 MG TABLET 10 MG PO (08:46)
[2023-05-29] MEDS: PANTOPRAZOLE 40 MG TABLET PO (08:46)
[2023-05-29 08:47] VITALS: PULSE 72
[2023-05-29] MEDS: guaiFENesin 12 HR 600 MG TABCR PO (08:47)
[2023-05-29] MEDS: LOSARTAN POTASSIUM 100 MG TABLET PO (08:47)
[2023-05-29] MEDS: PARoxetine 10 MG TABLET PO (08:47)
[2023-05-29] MEDS: SIMVASTATIN 20 MG TABLET 40 MG PO (08:47)
[2023-05-29] MEDS: EMPAGLIFLOZIN 10 MG TABLET PO (08:47)
[2023-05-29] MEDS: BENZONATATE 100 MG CAPSULE PO ×2 (08:47→13:43)
[2023-05-29] MEDS: ENOXAPARIN 40 MG/0.4 ML SYRINGE SUB-Q (08:47)
[2023-05-29] MEDS: METOPROLOL SUCCINATE EXT REL 50 MG TABCR PO (08:47)
[2023-05-29] MEDS: hydroCHLOROthiazide 25 MG TABLET PO (08:47)
[2023-05-29] MEDS: DOXYCYCLINE HYCLATE 100 MG TABLET PO (10:53)
--- NOTE | 2023-05-29 13:50 | PM.DS ---
DS: Admitting Diagnosis Discharge Date 05/29/2023 Admitting Diagnosis Right upper lobe pneumonia. CKD Hypertension hypothyroidism. DS: Discharge Diagnosis Discharge Diagnosis (1) Right upper lobe pneumonia: Qualifiers: Pneumonia type: due to unspecified organism Qualified Code(s): J18.9 - Pneumonia, unspecified organism Code(s): J18.9 - Pneumonia, unspecified organism Status: Acute (2) CKD (chronic kidney disease) stage 3, GFR 30-59 ml/min: Code(s): N18.30 - Chronic kidney disease, stage 3 unspecified Status: Chronic (3) Benign hypertension with chronic kidney disease: Code(s): I12.9 - Hypertensive chronic kidney disease with stage 1 through stage 4 chronic kidney disease, or unspecified chronic kidney disease Status: Acute (4) Prediabetes: Code(s): R73.03 - Prediabetes Status: Acute (5) Hyperlipidemia: Qualifiers: Hyperlipidemia type: mixed hyperlipidemia Qualified Code(s): E78.2 - Mixed hyperlipidemia Code(s): E78.5 - Hyperlipidemia, unspecified Status: Acute (6) Hypothyroidism, unspecified: Qualifiers: Hypothyroidism type: unspecified Qualified Code(s): E03.9 - Hypothyroidism, unspecified Code(s): E03.9 - Hypothyroidism, unspecified Status: Acute DS: Summary Hospital Course Reason for hospitalization: Cough shortness of breath Hospital Course: Patient is 72-year-old female who came to hospital complaining chest pains and shortness of breath and productive cough patient was treated with ceftriaxone and doxycycline. Patient's saturations were above 92% to the hospice stay. Patient also had uncontrolled hypertension which was treated with hydralazine IV and then later amlodipine 10 mg was added to the regimen. Patient was continued on hydrochlorothiazide Cozaar metoprolol. Also has history of chronic kidney disease for which gentle hydration avoiding NSAIDs potassium was monitored. Patient has history of obesity advised diet exercise weight loss patient currently on Jardiance and hemoglobin A1c is 5.9. Patient is cleared for discharge will send prescription for amlodipine will discontinue Rocephin and add doxycycline patient to follow-up with the primary care physician in 1 week . Status at Discharge Functional status at discharge: independent ambulation Time Spent with Patient Time attestation: Total time spent providing and/or coordinating discharge services: Exam Narrative: GENERAL: Well appearing, no acute distress. HEAD: Normocephalic, atraumatic. NECK: Supple. No adenopathy, no masses. RESPIRATORY: respirations nonlabored. , no rales, wheezing. CARDIOVASCULAR: Regular rate and rhythm without murmurs, . Peripheral pulses 2+ and equal bilaterally. ABDOMINAL: Soft, nontender, nondistended, no hepatosplenomegaly. Normoactive BS. MUSCULOSKELETAL: no Epigastric and no hypochondrial tenderness SKIN: Warm, dry, NEURO: A&O X3. Moves all extremities DS: Data Data Completed and Pending Labs on day of discharge: Labs from last 24 hours 05/29/23 05/29/23 05/28/23 08:15 05:56 20:11 WBC 7.9 RBC 3.37 L Hgb 10.3 L Hct 33.5 L MCV 99.4 MCH 30.6 MCHC 30.7 L RDW 12.4 Plt Count 264 MPV 8.6 Immature Gran % (Auto) 1.1 H Neut % (Auto) 65.6 Lymph % (Auto) 22.7 [place] % (Auto) 6.2 Eos % (Auto) 3.8 Baso % (Auto) 0.6 Lymph # (Auto) 1.80 [place] # (Auto) 0.5 Eos # (Auto) 0.3 Baso # (Auto) 0.1 Abs Immat Gran (auto) 0.09 H Absolute Neuts (auto) 5.2 Absolute Nucleated RBC 0.0 Nucleated RBC % 0.0 Sodium 140 Potassium 3.8 Chloride 104 Carbon Dioxide 24 Anion Gap 12 BUN 30 H Creatinine 1.40 H Estim Creat Clear Calc 35 Estimated GFR 37 L Glucose 103 POC Capillary Glucose 101 126 H Calcium 9.6 Magnesium 1.8 Total Bilirubin 0.4 AST 21 ALT 16 Alkaline Phosphatas
== END 2023-05-29 15:00 | disposition home or self-care (01) | DRG 195 ==
LOC: ANHED 14:34 → ANH3MEDSUR 17:18
PROVIDERS: Emergency Medicine; Nurse Practitioner; Student in an Organized Health Care Education/Training Program; Admitting Provider General Practice; Emergency Provider Student in an Organized Health Care Education/Training Program; PCP Family Medicine; Visit Provider Internal Medicine
DX: J18.9 Pneumonia, unspecified organism (principal); I12.9 Hypertensive chronic kidney disease with stage 1 through stage 4 chronic kidney disease, or unspecified chronic kidney disease; N18.30 Chronic kidney disease, stage 3 unspecified; E78.5 Hyperlipidemia, unspecified; E03.9 Hypothyroidism, unspecified; E55.9 Vitamin D deficiency, unspecified; E66.9 Obesity, unspecified; E86.0 Dehydration; I35.0 Nonrheumatic aortic (valve) stenosis; M17.0 Bilateral primary osteoarthritis of knee; R73.03 Prediabetes; Z20.822 Contact with and (suspected) exposure to COVID-19; Z90.710 Acquired absence of both cervix and uterus; Z68.37 Body mass index [BMI] 37.0-37.9, adult; Z79.84 Long term (current) use of oral hypoglycemic drugs
CPT/HCPCS: 36415; 71046; 80053; 82948; 83036; 83690; 83735; 84443; 84484; 85025; 85610; 85730; 87449; 87637; 87899; 93005; 96361; 96365; 96366; 96368; 99285; A9270; G0378; J0360; J0696; J1650; J7030; J7120

== ENCOUNTER 2023-08-20 10:37 | Outpatient (CLI) | payer MEDICARE, OTHER, SELFPAY ==
--- NOTE | ~2023-08-20 | XR_ITS ---
Right Shoulder Technique: AP and scapular Y views were obtained. Clinical History: Pain Findings: No fracture or dislocation is seen. Osseous alignment is anatomic. There is mild AC joint d egenerative change. There is minimal glenohumeral joint degenerative change. Suture anchor noted at t he humeral head. Soft tissues are unremarkable. Impression: Degenerative changes, as above. Reviewed, dictated and finalized at location M. Impression: Degenerative changes, as above.
== END 2023-08-20 10:38 ==
PROVIDERS: PCP Nurse Practitioner Adult Health; Visit Provider Nurse Practitioner Adult Health
DX: M25.511 Pain in right shoulder (principal)
CPT/HCPCS: 73030

== ENCOUNTER 2023-09-24 08:41 | Outpatient (CLI) | payer MEDICARE, OTHER, SELFPAY ==
--- NOTE | ~2023-09-24 | MR_ITS ---
MRI of the right shoulder Technique: Axial proton-density fat-sat images, coronal proton density fat-sat and T2 fat-sat images, and sagittal T1-weighted and T2 fat-sat images were acquired. Clinical History: Post procedural state Findings: There is advanced AC joint degenerative change with bony productive change of both sides of the joint. Coracoclavicular, coracoacromial, coracohumeral ligaments appear intact. There is suture anchor the humeral head, compatible prior rotator cuff repair surgery. Infraspinatus tendon appears intact, with mild tendinosis. Suspected extensive, recurrent full-thickness tear of th e supraspinatus tendon, with tear measuring approximately 2.4 x 1.7 cm in extent. Subscapularis tendo n is intact with moderate tendinosis. Tendon of long head of the biceps is probably chronically torn and retracted. There are degenerative tearing of the superior labrum, probably extending to the anterosuperior porti on. Inferior glenohumeral ligament is intact. There is moderate degenerative change of the glenohumeral j oint. There is small to moderate glenohumeral joint effusion, with probable small amount of fluid pas sing through the suspected rotator cuff defect into the subacromial/subdeltoid bursa. No definite mus jerome atrophy or edema seen. Impression: Prior rotator cuff repair surgery. Suspected extensive recurrent full-thickness tear of the supraspin atus tendon, as detailed above, there is severe signal alterations due to postoperative change could possibly have a similar appearance. Consider MR arthrogram to better delineate any recurrent tear. Suspected chronic tear of the proximal tendon of the long head of the biceps. Degenerative tearing of the superior labrum extending to the anterosuperior portion. Moderate glenohumeral joint degenerative change. Advanced AC joint degenerative change. Reviewed, dictated and finalized at location . Impression: Prior rotator cuff repair surgery. Suspected extensive recurrent full-thickness tear of the supraspinatus tendon, as detailed above, there is severe signal al terations due to postoperative change could possibly have a similar appearance. Consider MR arthrogram to better delineate any recurrent tear. Suspected chronic tear of the proximal tendon of the long head of the biceps. Degenerative tearing of the superior labrum extending to the anterosuperior por tion. Moderate glenohumeral joint degenerative change. Advanced AC joint degenerative change.
== END 2023-09-24 08:42 | disposition home or self-care (01) ==
PROVIDERS: PCP Family Medicine; Visit Provider Nurse Practitioner Family
DX: M25.511 Pain in right shoulder (principal); Z98.890 Other specified postprocedural states
CPT/HCPCS: 73221

== ENCOUNTER 2023-11-24 01:15 | Day surgery (SDC) | payer MEDICARE, OTHER, SELFPAY ==
[2023-11-21 10:27] VITALS: BMI 35.7
[2023-11-24] VITALS (9 sets, daily range): BP systolic 155–189; BP diastolic 36–65; PULSE 50–58; RESP 11–16; TEMP 36.3; O2SAT 93–97; BMI 36.0
[2023-11-24 08:56] LABS: Basophils Absolute Auto 0.1 K/mm3 (0.0-0.1); Basophils Percent Auto 0.7 % (0.2-1.2); Eosinophils Absolute Auto 0.4 K/mm3 (0-0.3); Eosinophils Percent Auto 6.2 % (0-4.4); Hematocrit 39.4 % (37.0-47.0); Hemoglobin 12.9 g/dL (12.0-15.0); Immature Granulocyte Absolute 0.02 K/mm3 (0.00-0.031); Immature Granulocyte Percent A 0.3 % (0-0.5); Lymphocytes Absolute Auto 1.85 K/mm3 (0.9-3.2); Lymphocytes Percent Auto 26.7 % (18.3-44.2); Mean Corpuscular HGB Conc 32.7 g/dl (32-36); Mean Corpuscular Volume 94.7 fl (80-100); Mean Platelet Volume 9.3 fl (7.4-10.4); Monocytes Absolute Auto 0.4 K/mm3 (0.1-0.6); Monocytes Percent Auto 5.9 % (2.6-8.5); Neutrophils Absolute Auto 4.2 K/mm3 (1.3-6.7); Neutrophils Percent Auto 60.2 % (45.5-73.1); Platelet Count Result 218 k/mm3 (150-375); Red Blood Count 4.16 M/mm3 (4.2-5.4); Red Cell Distribution Width 13.2 % (11.5-14.5); White Blood Count 6.9 K/mm3 (4.5-10.0)
[2023-11-24 09:07] LABS: Anion Gap 12 mmol/L (4-12); Blood Urea Nitrogen 25 mg/dL (7-17); Calcium 9.6 mg/dL (8.4-10.2); Carbon Dioxide 23 mmol/L (22-30); Chloride 107 mmol/L (98-107); Estimated CRCL calculation 38 ml/min; Estimated Glomerular Filt Rate 40; Glucose 118 mg/dL (65-110); Sodium 142 mmol/L (137-145)
[2023-11-24 09:12] LABS: Prothrombin Time 13.2 Seconds (11.1-14.7)
--- NOTE | 2023-11-24 09:51 | WPDMODSED ---
Moderate Sedation Note-Pt Data Patient Data Diagnosis: Symptomatic aortic stenosis Present Complaint: TERRELL Procedure to be performed/Plan: right and left heart catheterization Allergies Allergy/AdvReac Type Severity Reaction Status Date / Time Sulfa (Sulfonamide Allergy Unknown Unknown Verified 11/21/23 10:41 Antibiotics) beet AdvReac Severe Vomiting Verified 11/21/23 10:41 propoxyphene AdvReac Mild CF Verified 11/21/23 10:41 Home Medications Medication Instructions Recorded Confirmed Type esomeprazole magnesium 20 mg 20 mg PO DAILY 03/20/21 11/21/23 History capsule,delayed release (Nexium) hydrochlorothiazide 25 mg tablet 25 mg PO DAILY 02/06/23 11/21/23 History simvastatin 40 mg tablet (Zocor) 40 mg PO DAILY #90 tabs 06/12/23 11/21/23 Rx losartan 100 mg tablet 100 mg PO DAILY #90 tabs 09/08/23 11/21/23 Rx empagliflozin 10 mg tablet 10 mg PO DAILY #90 tabs 10/03/23 11/21/23 Rx (Jardiance) levothyroxine 75 mcg tablet 75 mcg PO DAILY@0630 30 days #30 10/03/23 11/21/23 Rx (Synthroid) tabs paroxetine HCl 10 mg tablet See Rx Instructions .Route 11/12/23 11/21/23 Rx .COMPLEX #90 tabs amlodipine 5 mg tablet (Norvasc) 5 mg PO QAM 11/21/23 11/21/23 History metoprolol succinate 50 mg 100 mg PO HS 11/24/23 11/24/23 History tablet,extended release 24 hr (Toprol XL) Current Medications: Active Medications Sodium Chloride (Normal Saline Iv) 500 mls @ 100 mls/hr IV CONT .Q5H RICKY Sedation/Anesthesia: No previous sedation/anesthesia problems (including family history). [facility] Past Medical History Medical History Anemia Cholecystectomy planned CKD (chronic kidney disease) stage 3, GFR 30-59 ml/min Essential hypertension Hyperlipidemia Hypothyroidism, unspecified OA (osteoarthritis) of knee Pneumonia Dx 05/22/23 Prediabetes Right shoulder pain Vitamin D deficiency Surgical History Surgical History H/O: hysterectomy Family History Family History (Updated 11/18/23 @ 16:36 by FELICITAS Gupta) Mother Hypertension Family history of malignant neoplasm Family history of diabetes mellitus in first degree relative Family history of coronary artery disease Sibling Hypertension Family history of diabetes mellitus in first degree relative Diabetes mellitus Kidney disease Father Cerebrovascular accident Sibling , copd COPD (chronic obstructive pulmonary disease) Social History Social History (Updated 11/18/23 @ 16:37 by FELICITAS Gupta) Smoking status: Former smoker Tobacco type: cigarettes Second hand tobacco smoke exposure: No Alcohol intake: current Drinks per week: 1 Substance use: never Substance use type: does not use Do You Feel Safe in your Home?: Yes Lack of Transportation: No Lack of Food: Never True Current Housing: I Have Housing Concerned About Future Housing: No Difficulty Paying Gas/Electric Bills: No Difficulty Paying for Meds: No Currently Unemployed: No Education: Trade/Vocational Certificate Difficulty w/ Childcare or Family Care: No Living arrangements: with family Additional living arrangements comments: Occupation/Education: retired 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
--- NOTE | 2023-11-24 11:19 | WPDCARDPROC ---
Cardiac Cath Procedure Note Date of procedure:: 11/24/23 Performing physician:: Edd East MD Indication:: symptomatic aortic stenosis Brief clinical history:: this is a 73-year-old woman with a previous history of atrial flutter who also has aortic valve stenosis which is been followed for a number years in the office. Exertional shortness of breath has become more problematic in the last 6-12 months and echocardiogram suggests significant progression in her aortic valve stenosis. Recent echo measures valve area 0.9 cm2 with a peak injection velocity of 3.7 m/sec. In this setting catheterization has been recommended anticipation of consultation with Cardiothoracic surgery/ structural cardiology team to consider aortic valve replacement Procedure Procedure performed:: right and left heart catheterization Sedation/Medication given:: fentanyl 50 mg Versed 2 mg case start time 10:17 a.m. case end time 11:09 a.m. sedation provided by Laureen Talamantes RN, trained observer Access site:: right femoral artery, right femoral vein Estimated blood loss:: 25 cc Procedure note:: patient was brought to the cardiac catheterization lab in the postabsorptive state where the right femoral triangle was prepared and draped in the usual fashion. Anesthesia was provided with 1% lidocaine infiltrated locally. Using the modified Seldinger technique the femoral artery was punctured and a 6 [place] 45 cm sheath was placed into the central aorta. Following this the femoral vein was punctured and a 7 [place] vascular sheath was placed. After this right heart catheterization was performed using a S tipped Pelican-Ari catheter measuring right-sided hemodynamics, thermodilution cardiac outputs and AV O2 difference. The Pelican-Ari catheter was then removed. Following this a 5 [place] angled pigtail catheter was advanced into the central aorta. Simultaneous pressures were measured between the pigtail and side arm of the long sheath. The pressures were identical. A straight wire was then advanced into the pigtail catheter the stenotic aortic valve was probed on the left ventricle was entered. A simple Sanders is LV and aortic pressures were documented the aortic gradient was measured and the aortic valve area was calculated. The pigtail catheter was then pulled back. Patient has mild chronic kidney disease and so a left ventriculogram was not performed. Following this a standard 5 [place] FL4 catheter was used to engage and inject the left coronary artery in multiple projections. A 5 [place] JR4 catheter would not engage the RCA and so I used a 6 [place] WRP guiding catheter to engage and inject the right coronary artery. We did not have a WRP catheter and a 5 [place] diagnostic catheter in the lab. After this cineangiograms were reviewed the case was terminated. An angiogram was performed to the femoral artery through the sheath after which I deployed a 6 [place] Angio-Seal device with a good hemostatic result. The venous sheath was removed in the starch factory laborer with direct manual compression. She is taken to the holding area for post cath recovery without any apparent complication and no evidence of a groin hematoma was apparent upon leaving the starch factory laborer. Findings:: Hemodynamics: Right atrial pressure 7, ventricle 47 over 6 end-diastolic 9. Pulmonary artery 46 over 16, pulmonary wedge pressure 13, central aorta 186 over 51, left ventricle 212 over 0 end-diastolic 11, thermodilution cardiac output was 4.7 liters/minute giving an index of 2.4. Rai output is 5.8 liters/minute giving an index of 2.9. The aortic valve mean gradient is 32.7 valve area 1.0 valve area index is 0.51. The left main coronary artery is medium in caliber fairly short without significant disease. The left anterior descending is a moderate caliber artery extending down to the apex. The LAD has mild atherosclerosis but no more than 30-40% stenosis proximally and in the midporti
== END 2023-11-24 14:35 | disposition home or self-care (01) ==
PROVIDERS: PCP Family Medicine; Visit Provider Specialist
PROC: 4A023N8 Measurement of Cardiac Sampling and Pressure, Bilateral, Percutaneous Approach (ICD-10-PCS; CPT 93453; principal; 2023-11-24 10:00)
DX: Z01.810 Encounter for preprocedural cardiovascular examination (principal); I35.0 Nonrheumatic aortic (valve) stenosis; I25.10 Atherosclerotic heart disease of native coronary artery without angina pectoris; I12.9 Hypertensive chronic kidney disease with stage 1 through stage 4 chronic kidney disease, or unspecified chronic kidney disease; N18.30 Chronic kidney disease, stage 3 unspecified; R73.03 Prediabetes; E78.5 Hyperlipidemia, unspecified; E03.9 Hypothyroidism, unspecified; D64.9 Anemia, unspecified; E55.9 Vitamin D deficiency, unspecified; Z79.84 Long term (current) use of oral hypoglycemic drugs; Z87.891 Personal history of nicotine dependence
CPT/HCPCS: 36415; 80048; 85025; 85610; 93460; C1760; C1769; C1887; C1894; G0269; J1644; J2250; J3010; J7040

== ENCOUNTER 2024-07-22 11:15 | Outpatient (RCR) | payer MEDICARE, OTHER, SELFPAY | END 2024-07-22 23:59 | disposition home or self-care (01) | LOC: ANHCPREHAB 11:15 | PROVIDERS: PCP Family Medicine; Visit Provider Specialist | DX: Z95.2 Presence of prosthetic heart valve (principal) | CPT/HCPCS: 93798 ==

== ENCOUNTER 2024-08-18 11:15 | Outpatient (RCR) | payer MEDICARE, OTHER, SELFPAY | END 2024-08-18 12:15 | disposition home or self-care (01) | LOC: ANHCPREHAB 11:15 | PROVIDERS: PCP Family Medicine; Visit Provider Specialist | DX: Z95.2 Presence of prosthetic heart valve (principal) | CPT/HCPCS: 93798 ==

== ENCOUNTER 2024-11-22 13:16 | Outpatient (CLI) | payer MEDICARE, OTHER, SELFPAY ==
--- NOTE | ~2024-11-22 | XR_ITS ---
EXAMINATION: XR barium swallow DATE: 11/22/2024 14:14 INDICATION: Reflux. Globus sensation with feeling of a lump in the throat. TECHNIQUE: The patient drank thick barium, gas-producing crystals, and thin barium. Fluoroscopic spot radiographs of the hypopharynx and esophagus were obtained. Fluoroscopy exposure time was 2.3 minut es. A total of 1525 images were recorded. Total DAP was 12.317 mGycm^2 COMPARISON: None. FINDINGS: The pharynx is symmetric and without evidence of mass lesion or mucosal irregularity. There are few surgical clips at the left side of the neck and location suggestive of prior carotid endarte rectomy. Also instantly noted are changes of prior aortic valve repair. The esophagus is normal witho ut mass or stricture. Esophageal motility is within normal for age. Some tertiary contractions were v isualized mid to distal esophagus during the double contrast portion of the examination. There is no hiatal hernia. There was no gastroesophageal reflux with provocative maneuvers. IMPRESSION: 1. Some tertiary contractions in the mid to distal esophagus. Otherwise unremarkable esophagram with no strictures, hiatal hernia or evident gastroesophageal reflux. Reviewed, dictated and finalized at location A. IMPRESSION: 1. Some tertiary contractions in the mid to distal esophagus. Otherwise unremar kable esophagram with no strictures, hiatal hernia or evident gastroesophageal reflux.
--- OUTSIDE RECORDS SUMMARY | 2024-11-22 13:24 | XMS_ITS | Referral Summary ---
Author Organization [facility] Address [address] [place] [address] Care Team Providers Care Terrazzo Polisher Name Role Phone Ryne Mcdonough MD Primary Care Provider [phone] Simeon Avelar MD Unavailable Edd East MD Unavailable [phone] Marysol Tesfaye MD Unavailable [phone] Ericka Zamora NP Unavailable [phone] Cesar Negro MD Unavailable [phone] Encounters Date Type Department Care Team Description 10/04/2024 9:30 AM CDT Office Visit [facility] [address] [place] [phone] Dillon Olivarez NP Acute CVA (cerebrovascular accident) (HCC) (Primary Dx); Neuropathy 09/27/2024 Telephone [facility] [address] [facility] [address] [place] [phone] Edd East MD 08/25/2024 10:30 AM CDT Office Visit [facility] [address] [facility] [address] [place] [phone] Edd East MD Typical atrial flutter (HCC) (Primary Dx); Status post transcatheter aortic valve replacement (TAVR) using bioprosthesis; S/P carotid endarterectomy from Last 3 Months Allergies Active Allergy Reactions Criticality Noted Date Comments Beet Nausea & Vomiting Low 11/17/2017 Penicillins Syncope High 02/12/2012 Cefazolin was administered in 12/2023 Propoxyphene Napsylate Mental status changes Low 02/12/2012 Sulfa (Sulfonamide Antibiotics) Unknown 02/12/2012 Medications PARoxetine (PAXIL) 10 mg tablet Take 1 tablet (10 mg total) by mouth nightly Active losartan (COZAAR) 100 mg tablet Take 1 tablet (100 mg total) by mouth every morning 08/08/[address] (NexIUM) 20 mg capsule Take 1 capsule (20 mg total) by mouth every morning 01/03/20 21 Active Jardiance 10 mg tablet Take 1 tablet (10 mg total) by mouth every morning 03/29/20 23 Active amLODIPine (NORVASC) 5 mg tablet Take 1 tablet (5 mg total) by mouth every morning 05/29/19 24 Active cholecalciferol 25 mcg (1,000 unit) tablet Take 2 tablets (2,000 Units total) by mouth every morning Active ascorbic acid (ascorbic acid with keyshawn hips) 500 mg tablet,chewable Take 1 tablet/chew tab (500 mg total) by mouth every morning Active acetaminophen 500 mg capsule Take 2 capsules (1,000 mg total) by mouth every 6 (six) hours as needed for pain 12/23/19 24 Active levothyroxine (SYNTHROID) 75 mcg tablet Take 1 tablet (75 mcg total) by mouth advertising account manager before breakfast Active apixaban (ELIQUIS) 5 mg tabletIndication s:atrial fibrillation Take 1 tablet (5 mg total) by mouth every 12 (twelve) hours 60 tablet 2 01/02/20 24 Active rosuvastatin (CRESTOR) 20 mg tablet Take 1 tablet (20 mg total) by mouth nightly 30 tablet 2 01/02/20 24 Active aspirin 81 mg enteric coated tablet Take 1 tablet (81 mg total) by mouth every morning Active metoprolol XL (TOPROL-XL) 100 mg 24 hr tablet Take 1 tablet by mouth once daily 90 tablet 09/23/19 25 Active hydrALAZINE (APRESOLINE) 25 mg tablet TAKE 1 TABLET BY MOUTH THREE TIMES DAILY 90 tablet 2 10/22/19 25 Active hydroCHLOROthiaz saul (HYDRODIURIL) 25 mg tablet Take 1 tablet by mouth once daily 90 tablet 1 11/19/19 25 Active hydroCHLOROthiaz saul (HYDRODIURIL) 25 mg tablet Take 1 tablet by mouth once daily 90 tablet 07/20/19 25 025 Discontinued Active Problems Problem Noted Date Diagnosed Date Neuropathy 10/04/2024 Assessment & Plan (10/04/2024 10:44 AM CDT): Mahogany continues to endorse neuropathic sensations of bilateral upper hands which has likely been present prior to her recent CVA. She does report left hand is worse than right hand. She is left-handed. Reports numbness and tingling sensation usually every day but isn't constant. Discussed various workup including EMG or checking for reversible causes. At this time, she wishes for conservative therapy. She does not wish to undergo any diagnostic imaging at this time. On exam, she does have numbness of bilateral digits. Bilateral the reflexes are intact including upper extremity. Plan Continue to monitor at this time If deterioration occurs, consider EMG Can consider neuropathic medications Follow up in 9 months or as needed S/P carotid endarterectomy 03/03/2024 Left carotid artery stenosis 02/17/2024 Stenosis of left carotid artery 01/29/2024 Symptomatic stenosis of left carotid artery 12/18 Assessment & Plan (01/12/2024 11:23 AM CDT): She may have symptomatic left carotid disease. We've discussed the benefit and risks of left carotid endarterectomy. She'll think it over. If she's recovered from a cardiac standpoint based on her upcoming follow-up appointments and cleared for left carotid endarterectomy from a cardiac standpoint; we would recommend proceeding with left carotid endarterectomy. TIA (transient ischemic attack) 12/31/2023 Acute CVA (cerebrovascular accident) 12/30/2023 Assessment & Plan (10/04/2024 10:41 AM CDT): Mahogany developed acute CVA incident on 12/30/2023. Further workup revealed scattered foci within the left MCA distribution, left occipital lobe 100 and right cerebellum. She also underwent left CEA outpatient for concerns noted on CTA. Since her hospitalization, she has continued to make great improvement. Reports resolution of CVA symptoms. She denies weakness, dysarthria, or facial droop. She continues aspirin 81 mg p.o. daily and rosuvastatin 20 mg p.o. daily. Plan Continue aspirin 81 mg p.o. daily Continue rosuvastatin 20 mg p.o. daily Monitor for worsening signs or symptoms Stroke symptoms develop she is to seek emergency evaluation Follow up in 9 months or as needed Assessment & Plan (03/31/2024 9:14 AM LOGISTIC SPECIALIST): Patient reports today for follow up after sustaining CVA to her left MCA distribution, left occipital lobe, and right cerebellum. She was underwent carotid endarterectomy on 02/17/2024. She continues to follow up with vascular surgery and Cardiology. She continues Eliquis, aspirin, and rosuvastatin 20 mg. Her most recent LDL value was 60. Her most recent A1c value was 5.7. We discussed signs and symptoms stroke and when to report to emergency services. In regards to her numbness and tingling of her left hand and left lower ankle I advised continued monitoring. If symptoms worsen or exacerbate we can move forward with EMG and nerve conduction studies. At this time advised the following: Continue aspirin 81 mg p.o. daily Continue Eliquis as directed by cardiology Continue rosuvastatin 20 mg p.o. daily Monitor for worsening signs or symptoms If symptoms represent or new symptoms develop she is to report to emergency services Patient and voiced understanding and agreeable treatment plan Status post transcatheter ao rtic valve replacement (TAVR) using bioprosthesis 12/22/2023 Assessment & Plan (01/21/2024 2:47 PM CDT): S/p TAVR 1 month ago. The valve is functioning well. We will plan to see the patient back for a 1 year TAVR follow up. Encounter for examination fo r normal comparison and control in clinical research program 12/19/2023 Primary hypertension 12/10/2023 Mixed hyperlipidemia 12/10/2023 Shortness of breath 12/10/2023 Intractable acute post-traumatic headache 2021 Vertigo 09/17/2021 Gallstones 11/17/2017 Overview (11/17/2017): Added automatically from request for surgery [id number] Typical atrial flutter 05/15/2017 Nonrheumatic aortic valve stenosis 05/15/2017 Pain of hand 06/11/2016 Pain in shoulder 03/19/2016 Osteoarthritis of knee 11/17/2015 Encntr for general adult medical exam w/o abnorm al findings 04/05/2013 Leukocytosis 02/18/2012 Resolved Problems Problem Noted Date Diagnosed Date Resolved Date Aortic stenosis 12/22/2023 12/24/2023 Immunizations Immunization Administration Dates Next Due Influenza, Trivalent, High D ose, Split, Preservative Free, Intramuscular 03/16/2019,03/19/2018,04/23/2017,05/27,04/18/2015 Influenza, Trivalent, IM (MDV) 03/23/2014 Pneumococcal Conjugate PCV 13 03/19/2018 Social History Tobacco Use Types Packs/Day Years Used Date Smoking Tobacco: Former Cigarettes 1 06/03/1971 - 1965 Passive Smoke Exposure: Past Smokeless Tobacco: Never Tobacco Cessation:Counseling Given: Not Answered Alcohol Use Standard Drinks/Week Comments Yes 3 (1 standard drink = 0.6 oz pur e alcohol) occassionally [employer] Utilities Answer Date Recorded In the past 12 months has e electric, gas, oil, or water company threatened to shut off services in your home? No 02/18/2024 Social Connection and Isolat ion Panel [NHANES] Answer Date Recorded In a typical week, how many times do you talk on the phone with family, friends, or neighbors? More than three times a week 02/18/2024 How often do you get togethe r with friends or relatives? More than three times a week 02/18/2024 How often do you attend chur ch or religion services? More than 4 times per year 02/18/2024 Do you belong to any clubs o r organizations such as spiritism groups, unions, fraternal or athletic groups, or school groups? Yes 02/18/2024 How often do you attend meet ings of the clubs or organizations you belong to? More than 4 times per year 02/18/2024 Are you , , di vorced, , never , or living with a partner? 02/18/2024 AUDIT-C Answer Date Recorded Q1: How often do you have a drink containing alc ohol? Monthly or less 03/31/2024 Q2: How many drinks containi ng alcohol do you have on a typical day when you are drinking? 1 or 2 03/31/2024 Q3: How often do you have si x or more drinks on one occasion? Never 03/31/2024 Overall Financial Resource Strain (CARDIA) Answe r Date Recorded How hard is it for you to pa y for the very basics like food, housing, medical care, and heating? Not hard at all 02/18/2024 Hunger Vital Sign Answer Date Recorded Within the past 12 months, y ou worried that your food would run out before you got the money to buy more. Never true 02/18/20 24 Within the past 12 months, t he food you bought just didn't last and you didn't have money to get more. Never true 02/18/2024 PRAPARE - Transportation Answer Date Re corded In the past 12 months, has l ack of transportation kept you from medical appointments or from getting medications? No 06/2023 In the past 12 months, has l ack of transportation kept you from meetings, work, or from getting things needed for daily living? No 02/18/2024 Housing Stability Vital Sign Answer Santiago e Recorded In the last 12 months, was t here a time when you were not able to pay the mortgage or rent on time? No 02/18/2024 In the past 12 months, how m any times have you moved where you were living? 0 02/18/2024 At any time in the past 12 m [facility], were you homeless or living in a chcf (including now)? No 02/18/2024 Personal Safety Answer Date Recorded Have you ever been in or are you currently in a harmful physical or emotional relationship or is someone making you feel afraid or unsafe? Denies 02/17/2024 Comments No Sex and Gender Information Value Date Recorded Sex Assigned at Not on file Legal Sex Female 2:16 AM LOGISTIC SPECIALIST Gender Identity Not on file Sexual Orientation Not on file Last Filed Vital Signs Vital Sign Reading Time Taken Comments Blood Pressure 142/64 10/04/2024 9:22 AM CDT Pulse 44 10/04/2024 9:22 AM CDT Temperature 37.1 C (98.7 F) 03/03/2024 10:40 AM CDT Respiratory Rate 16 03/31/2024 7:52 AM LOGISTIC SPECIALIST Oxygen Saturation 96% 10/04/2024 9:22 AM CDT Inhaled Oxygen Concentration - - Weight 93.9 kg (207 lb) 10/04/2024 9:22 AM CDT Height 162.6 cm (5' 4) 10/04/2024 9:22 AM CDT Body Mass Index 35.53 10/04/2024 9:22 AM CDT Plan of Treatment Not on file Medical Devices Implanted Type Area Gang Pusher Device Identifier Shelf Expiration Date Model / Serial / Lot [employer] Valve Aortic Trnscath Jennifer 3 Ultra Resilia 23mm [id number] - [id number] - [id number] Implanted:Qty: 1 on 12/22/2023 by Simeon Avelar MD at [facility] Prosthetic Valve N/A: Aortic Valve [employer] 11/10/2025 [id number] / [id number] / [id number] [employer] 18f Manta Vascular Closure Device 2114 - [id number] Implanted:Qty: 1 on 12/22/2023 by Simeon Avelar MD at [facility] Vascular Closure Device Left: Femoral [employer] 01/12/20252114 / [id number] [employer] Ltd Device 5fr Closure Celt Acd Vascular Sterile Latex Free Disposable Bossman Kclt-05 - S0 - [id number] Implanted:Qty: 1 on 12/22/2023 by Simeon Avelar MD at [facility] Vascular Closure Device Right: Femoral [employer] LTD 01/29/2026 KCLT-05 / 0 / [id number] [employer] Graft Patch Patch Vascular Repair 0.8x8cm 0.8x8cm Pfp0.8x8 - [id number] Implanted:Qty: 1 on 02/17/2024 by Cesar Negro MD at [facility] Left: Carotid [employer] 08/22/2025 PFP0.8X8 / / [id number] Procedures Procedure Name Priority Date/Time Associated Diagnosis Comments DEXA AXIAL SKELETON BONE DENSITY 1 OR MORE SITES Schedule Routine, Read Routine (OP Routine) 10/18/2022 10:20 AM CDT Asymptomatic menopausal state SCREENING MAMMOGRAM BILATERAL W EPI Schedule Routine, Read Routine (OP Routine) 10/18/2022 10:07 AM CDT Encounter for other screening for malignant neoplasm of breast from Last 3 Months or Most Recently Relevant to Health Maintenance Results * Dexa Axial Skeleton Bone Density 1 or 2 Site (10/18/2022 10:20 AM CDT) Anatomical Region Laterality Modality Body N/A Other 10/18/2022 9:51 PM CDT Narrative 10/18/2022 9:51 PM CDT EXAM DESCRIPTION: DEXA AXIAL SKELETON BONE DENSITY 1 OR MORE SITES REASON FOR STUDY: 72 y/o year old F with given history of screening. Postmenopausal Gang Pusher/Model: Sokoos SL ([id number]) CLINICAL INFORMATION: Current height: 63.5 inches Maximum height: 64 inches Weight: 219 pounds Risk factors: Postmenopausal COMPARISON: None available FINDINGS: AP LUMBAR SPINE L1-L4: Total BMD is 1.111 g/cm2 T-score is 0.6 LEFT HIP: Total BMD is 0.971 g/cm2 T-score is 0.2 Femoral neck BMD is 0.771 g/cm2 T-score is -0.7 FRAX: FRAX not reported due to T-scores of hip, femoral neck and/or spine being at or above -1.0 (Normal). IMPRESSION: Normal bone mass. REFERENCE: Bone mineral density: Normal (T-score above or = -1.0) Low bone mass (T-score between -1.0 and -2.5) replaces the previously used term osteopenia Osteoporosis (T-score = or below -2.5) Medical evaluation for secondary causes of low bone mineral density may be appropriate. FRAX is a World Health Organization validated fracture risk assessment tool that calculates a person's 10 year probability of a major osteoporosis related fracture and hip fracture. According to the National Osteoporosis Foundation guidelines, postmenopausal women and men age 50 or older with low bone mass and a 10 year probability of a major osteoporosis related fracture = or greater than 20% or a 10 year probability of a hip fracture = or greater than 3% should be considered for treatment. For further information, including treatment recommendations, please refer to the 2019 ISCD Official Positions (http://www.iscd.org) and the NOF's Clinician's Guide to Prevention and Treatment of Osteoporosis (http://www.nof.org/professionals/clinical-guidelines) THIS IS AN ELECTRONICALLY VERIFIED FINAL REPORT 10/18/2022 9:51 PM - Electronically signed by Edd Bragg M.D. MF: RICH Report ID: [id number] Reading Location: [place] [address] Procedure Note Edd Bragg MD - 10/18/2022 EXAM DESCRIPTION: DEXA AXIAL SKELETON BONE DENSITY 1 OR MORE SITES REASON FOR STUDY: 72 y/o year old F with given history of screening. Postmenopausal Gang Pusher/Model: [employer] SL ([id number]) CLINICAL INFORMATION: Current height: 63.5 inches Maximum height: 64 inches Weight: 219 pounds Risk factors: Postmenopausal COMPARISON: None available FINDINGS: AP LUMBAR SPINE L1-L4: Total BMD is 1.111 g/cm2 T-score is 0.6 LEFT HIP: Total BMD is 0.971 g/cm2 T-score is 0.2 Femoral neck BMD is 0.771 g/cm2 T-score is -0.7 FRAX: FRAX not reported due to T-scores of hip, femoral neck and/or spine beingat or above -1.0 (Normal). IMPRESSION: Normal bone mass. REFERENCE: Bone mineral density: Normal (T-score above or = -1.0) Low bone mass (T-score between -1.0 and -2.5) replaces thepreviously used term osteopenia Osteoporosis (T-score = or below -2.5) Medical evaluation for secondary causes of low bone mineral density may be appropriate. FRAX is a World Health Organization validated fracture risk assessmenttool that calculates a person's 10 year probability of a major osteoporosisrelated fracture and hip fracture. According to the National OsteoporosisFoundation guidelines, postmenopausal women and men age 50 or older with low bonemass and a 10 year probability of a major osteoporosis related fracture = or greater than 20% or a 10 year probability of a hip fracture = or greaterthan 3% should be considered for treatment. For further information, including treatment recommendations, please referto the 2019 ISCD Official Positions (http://www.iscd.org) and the NOF's Clinician's Guide to Prevention and Treatment of Osteoporosis (http://www.nof.org/professionals/clinical-guidelines) THIS IS AN ELECTRONICALLY VERIFIED FINAL REPORT 10/18/2022 9:51 PM - Electronically signed by Edd Bragg M.D. MF: RICH Report ID: [id number] Reading Location: [place] [address] Ryne Mcdonough MD IMG DXA PROCEDURES Final Res ult * Screening Mammogram Bilateral W Epi (10/18/2022 10:07 AM CDT) Anatomical Region Laterality Modality Breast Bilateral Mammography 10/21/2022 11:5 0 AM CDT Impressions 10/21/2022 11:50 AM CDT There is no mammographic evidence of malignancy. A 1 year screening mammogram is recommended. BI-RADS: 1 - Negative. The patient has been or will be contacted. The patient will be entered into a reminder system with a target due date of 1 year for her next mammogram. Electronically signed by: MARIANO Helm 10/21/2022 11:50 AM CDT EXAMINATION: SCREENING MAMMOGRAM BILATERAL W EPI ORDERING HEALTHCARE PROVIDER: RYNE MCDONOUGH HISTORY: Routine screening mammography. COMPARISON: 02/19/2017. TECHNIQUE: CC and MLO views of both breasts were obtained with digital technique using digital breast tomosynthesis with C view. Computer aided detection was utilized. FINDINGS: DENSITY: The breasts are almost entirely fatty. BREASTS: There is no new suspicious finding in either breast on mammogram. us Ryne Mcdonough MD IMG MAMMO PROCEDURES Final R esult from Last 3 Months or Most Recently Relevant to Health Maintenance Insurance [facility] MEDICARE MEDICARE [place] [address] Advance Directives For more information, please contact: [phone] * Full Code (Latest Code Status on File) Date Activated Date Inactivated Comments 02/17/2024 1:28 PM 02/19/2024 3:17 PM * Full Code Date Activated Date Inactivated Comments 12/30/2023 9:21 PM 01/02/2024 10:19 PM * Full Code Date Activated Date Inactivated Comments 12/22/2023 7:31 AM 12/23/2023 7:22 PM Care Teams Terrazzo Polisher Relationship Specialty Start Date End Date Ryne Mcdonough MD PCP - General 07/31/16 Simeon Avelar MD [address] [place], [place] [id number] Consulting Physician Cardiology 12/10/23 Edd East MD [address] [address] Referring Physician Cardiology 12/10/23 Marysol Tesfaye MD [address] [place] [address] Consulting Physician Cardiothoracic Surgery 12/10/23 Ericka Zamora NP [address] [place] [address] Nurse Practitioner Cardiothoracic Surgery 12/23/23 Cesar Negro MD [address] [address] Surgeon Vascular Surgery 01/02/24
--- OUTSIDE RECORDS SUMMARY | 2024-11-22 13:24 | XMS_ITS | Encounter Summary ---
Author Organization [facility] Healthcare Address [address] [place] [address] Care Team Providers Care Associate Veterinarian Name Role Phone Griffin Mcdonough MD Primary Care Provider [phone] Simeon Avelar MD Unavailable Edd East MD Unavailable [phone] Marysol Tesfaye MD Unavailable Ericka Zamora NP Unavailable [phone] Cesar Negro MD Unavailable [phone] Encounter Details Date Type Department Care Team (Late st Contact Info) Description 11/24/2023 Orders Only [facility] [address] [place] [address] Scanning, Provider Social History Tobacco Use Types Packs/Day Years Used Date Smoking Tobacco: Former Cigarettes Q uit: 04/03/1972 Smokeless Tobacco: Never Alcohol Use Standard Drinks/Week Comments Yes 3 (1 standard drink = 0.6 oz pur e alcohol) occassionally Personal Safety Answer Date Recorded Getting School Help Needed Not on file 06/05 Comments Unknown Sex and Gender Information Value Date Recorded Sex Assigned at Not on file Legal Sex Female 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 Gender Identity Not on file Sexual Orientation Not on file documented as of this encounter Plan of Treatment Not on file documented as of this encounter Procedures Procedure Name Priority Date/Time Associated Diagnosis Comments CARDIOLOGY DOCUMENT SCAN 11/24/2023 documented in this encounter Results * Cardiology Document Scan (11/24/2023) Anatomical Region Laterality Modality Other us Provider Scanning CV CARDIAC SERVICES PROCEDURES Final Result documented in this encounter Visit Diagnoses Not on filedocumented in this encounter Care Teams Associate Veterinarian Relationship Specialty Start Date End Date Griffin Mcdonough MD PCP - General 07/31/16 Simeon Avelar MD [address] [place], [place] [id number] Consulting Physician Cardiology 12/10/23 Edd East MD [address] [place], [place] [phone] Referring Physician Cardiology 12/10/23 Marysol Tesfaye MD [address] [place] [address] Consulting Physician Cardiothoracic Surgery 12/10/23 Ericka Zamora NP [address] [place] [address] Nurse Practitioner Cardiothoracic Surgery 12/23/23 Cesar Negro MD [address] [place] [address] Surgeon Vascular Surgery 01/02/24 documented as of this encounter
--- OUTSIDE RECORDS SUMMARY | 2024-11-22 13:24 | XMS_ITS | Clinical Summary ---
Author Organization [facility] Address [address], [address] [address] Phone Care Team Providers Care Lead Burner Apprentice Name Role Phone Griffin Mcdonough MD Primary Care Provider [phone] Allergies Active Allergy Reactions Criticality Noted Date Comments Other Other (see Comments) 10/21/2017 Darvocet- States it made her feel high Beets- Cause her to vomit severely. Penicillins Other (see Comments) 10/21/2017 States passed out as a child. Sulfa Antibiotics Other (see Comments) 10/22/19 18 States passed out as a child Medications losartan-hydroch lorothiazide (HYZAAR) 100-12.5 MG Tablet Take 1 Tab by mouth daily. Active levothyroxine (SYNTHROID) 75 MCG Tablet Take 75 mcg by mouth daily. Active simvastatin (ZOCOR) 40 MG Tablet Take 40 mg by mouth every evening. Active PARoxetine (PAXIL) 10 MG Tablet Take 10 mg by mouth daily. Active metoprolol Succinate (TOPROL-XL) 50 MG TABLET SR 24 HR Take 50 mg by mouth daily. Active IBUPROFEN PO Take by mouth as needed. Active Acetaminophen (TYLENOL PO) Take by mouth as needed. Active Family History Medical History Relation Name Comments Stroke Father Colon Cancer Maternal Aunt Leukemia/Lymphoma Mother Relation Name Status Comments Father Maternal Aunt Mother Social History Tobacco Use Types Packs/Day Years Used Date Smoking Tobacco: Former Cigarettes 0.3 6 Smokeless Tobacco: Never Comments:from age [age] year s old, states less than a 1/4 ppd Alcohol Use Standard Drinks/Week Comments Yes 0 (1 standard drink = 0.6 oz pur e alcohol) Occasionally Comments Unknown Sex and Gender Information Value Date Recorded Sex Assigned at Not on file Legal Sex Female 11:29 PM CDT Gender Identity Not on file Sexual Orientation Not on file 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 file Not on file Not on file Last Filed Vital Signs Vital Sign Reading Time Taken Comments Blood Pressure 180/85 11/03/2017 12:25 PM 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 Pulse 51 11/03/2017 10:31 AM CDT Temperature 36 C (96.8 F) 11/03/2017 12:15 PM CDT Respiratory Rate 17 11/03/2017 12:1 5 PM CDT Oxygen Saturation 100% 11/03/2017 12: 15 PM CDT Inhaled Oxygen Concentration - - Weight 99.3 kg (219 lb) 11/03/2017 10:3 1 AM CDT Height 162.6 cm (5' 4) 11/03/2017 5:12 AM CDT Body Mass Index 37.59 11/03/2017 5:12 AM CDT Plan of Treatment Health Maintenance Due Date Last Done Comments Hepatitis C Virus (HCV) Screening 1950 TdaP Immunization 1950 Pneumococcal Immunization (5 0+ years) (1 of 1 - PCV) 1998 Zoster Immunization (1 of 2) 1998 Respiratory Syncytial Virus (RSV) Immunization (Adult) (1 - 1-dose 75+ series) 2023 SARS-COV-2 Immunization ( - 2023- season) 2024 Influenza Immunization (Seas on Ended) 2025 Colonoscopy Discontinued 11/03/2017 Colorectal Cancer Screening Discontinued Cologuard Discontinued Hepatitis B Immunization Aged Out No longer eligible based on patient's age to complete this topic Human Papillomavirus (HPV) Immunization Aged Out No longer eligible b ased on patient's age to complete this topic Immunochemical Fecal Occult Blood Discontinued Meningococcal Immunization (ACWY) Aged Out No longer eligible based on patient's age to complete this topic Rotavirus Immunization Aged Out No lo nger eligible based on patient's age to complete this topic Insurance MEDICARE Care Teams Lead Burner Apprentice Relationship Specialty Start Date End Date Griffin Mcdonough MD [address] [address] PCP - General Family Medicine 11/03/17
--- OUTSIDE RECORDS SUMMARY | 2024-11-22 13:24 | XMS_ITS | Clinical Summary ---
Author Organization [facility] Address [facility] [place] [address] Care Team Providers Care Applications Engineer Manufacturing Name Role Phone Unavailable Primary Care Provider Unavailabl e Social History Tobacco Use Types Packs/Day Years Used Date Smoking Tobacco: Never Assessed Comments Unknown Sex and Gender Information Value Date Recorded Sex Assigned at Not on file Legal Sex Female 4:39 PM CDT Gender Identity Not on file Sexual Orientation Not on file Plan of Treatment Health Maintenance Due Date Last Done Comments Hepatitis C 1966 DTaP, Tdap and Td Vaccines ( 1 - Tdap) 1967 Pneumococcal Vaccine: 50+ Ye ars (1 of 1 - PCV) 1998 Zoster Vaccines (1 of 2) 1998 Dexa Scan (General) 2013 RSV Immunization or 60+ Years (1 - 1-dose 75+ series) 2023 COVID-19 Vaccine (2023-2 5 season) 2024 Meningococcal B Vaccine Aged Out No l onger eligible based on patient's age to complete this topic Meningococcal Vaccine Aged Out No meredith qing eligible based on patient's age to complete this topic RSV Immunizations Under 20 Months Aged Out No longer eligible based on patient's age to complete this topic
--- OUTSIDE RECORDS SUMMARY | 2024-11-22 13:24 | XMS_ITS | Clinical Summary ---
Author Organization [facility] Address [address] [place] [address] Care Team Providers Care Robotics Engineer Name Role Phone Ryne Mcdonough MD Primary Care Provider [phone] Simeon Avelar MD Unavailable Edd East MD Unavailable [phone] Marysol Tesfaye MD Unavailable Ericka Zamora NP Unavailable [phone] Cesar Negro MD Unavailable [phone] Allergies Active Allergy Reactions Criticality Noted Date [...] 1 tablet (75 mcg total) by mouth aerophysics engineer before breakfast Active apixaban (ELIQUIS) 5 mg [...] needed Assessment & Plan (03/31/2024 9:14 AM INSPECTOR AGRICULTURAL COMMODITIES): Patient reports today for follow up after [...] (11/17/2017): Added automatically from request for surgery [id number] Typical atrial flutter 05/15/2017 Nonrheumatic aortic valve stenosis 05/15/2017 Pain of hand 06/11/2016 Pain in shoulder 03/19/2016 Osteoarthritis of knee 11/17/2015 Encntr for general adult medical exam w/o abnorm al findings 04/05/2013 Leukocytosis 02/18/2012 Resolved Problems Problem Noted Date Diagnosed Date Resolved Date Aortic stenosis 12/22/2023 12/24/2023 Encounters Date Type Department Care Team Description 10/04/2024 9:30 AM CDT [facility] [address] [facility] [address] [place] [id number] Dillon Olivarez NP Acute CVA (cerebrovascular accident) (HCC) (Primary Dx); Neuropathy 09/27/[address] [facility] [address] [place], [place] [id number] Edd East MD 08/25/2024 10:30 AM CDT Office Visit [facility] [address] [facility] [address] [place] [address] Edd East MD Typical atrial flutter (HCC) (Primary Dx); Status post transcatheter aortic valve replacement (TAVR) using bioprosthesis; S/P carotid endarterectomy from Last 3 Months Immunizations Immunization Administration Dates Next Due Influenza, Trivalent, High D ose, Split, Preservative Free, Intramuscular 03/16/2019,03/19/2018,04/23/2017,05/27,04/18/2015 Influenza, Trivalent, IM (MDV) 03/23/2014 Pneumococcal Conjugate PCV 13 03/19/2018 Surgical History Surgery Date Site/Laterality Comments HYSTERECTOMY LASIK BREAST BIOPSY Left Benign Calcifications CHOLECYSTECTOMY 11/28/2017 Laparoscopic Cholecystectomy ROTATOR CUFF REPAIR Right FOOT NEUROMA SURGERY Left TRANSCATHETER AORTIC VALVE REPLACEMENT 12/22/2023 23 Rojas Medical History Medical History Date Comments Hypertension Hypertension Osteoarthritis Osteoarthritis Adiposity Obesity Hyperlipidemia Thyroid disease Depression Atrial flutter (HCC) Diverticulitis of colon Cyst of right kidney Dr. faviola covington Murmur Anemia Heart valve disease Osteoporosis 2015 Aortic stenosis treated with TAV R on 12/22/2023 Stroke (HCC) 12/30/2023 Family History Medical History Relation Name Comments Cancer Mother Sunitha Diabetes Mother [place] Heart failure Mother Sunitha Leukemia Mother [place] Diabetes Sister 1 Diabetes Sister 2 Louise Diabetes Sister 3 Erika Relation Name Status Comments Mother Prewitt Sister 1 Alive Sister 2 Louise Sister 3 Erika Social History Tobacco Use Types Packs/Day Years Used Date Smoking Tobacco: Former Cigarettes 1 06/03/1971 - 1965 Passive Smoke Exposure: Past Smokeless Tobacco: Never Tobacco Cessation:Counseling Given: Not Answered Alcohol Use Standard Drinks/Week Comments Yes 3 (1 standard drink = 0.6 oz pur e alcohol) occassionally [facility] Utilities Answer Date Recorded In the past [...] often do you attend chur ch or buddhism services? More than 4 times per year 02/18/2024 Do you belong to any clubs o r organizations such as judaism groups, unions, fraternal or athletic groups, or [...] any time in the past 12 [facility], were you homeless or living in a care home (including now)? No 02/18/2024 Personal Safety Answer Date Recorded Have you ever been in or are you currently in a harmful physical or emotional relationship or is someone making you feel afraid or unsafe? Denies 02/17/2024 Comments No Sex and Gender Information Value Date Recorded Sex Assigned at Not on file Legal Sex Female 2:16 AM INSPECTOR AGRICULTURAL COMMODITIES Gender Identity Not on file Sexual Orientation Not on file Obstetrics History Para Term AB IAB SAB Ectopic Multiple Livin g Live Births 2 2 2 Date Outcome GA Total Labor Labor/2nd/3rd Weight Sex Type Anes PTL Petty A1 A5 Name Clin Term Term Last Filed Vital Signs Vital Sign Reading Time Taken Comments Blood Pressure 142/64 10/04/2024 9:22 AM CDT Pulse 44 10/04/2024 9:22 AM CDT Temperature 37.1 C (98.7 F) 03/03/2024 10:40 AM CDT Respiratory Rate 16 03/31/2024 7:52 AM INSPECTOR AGRICULTURAL COMMODITIES Oxygen Saturation 96% 10/04/2024 9:22 AM CDT Inhaled Oxygen Concentration - - Weight 93.9 kg (207 lb) 10/04/2024 9:22 AM CDT Height 162.6 cm (5' 4) 10/04/2024 9:22 AM CDT Body Mass Index 35.53 10/04/2024 9:22 AM CDT Plan of Treatment Health Maintenance Due Date Last Done Comments Depression Screening 1950 Hepatitis C Screening 1950 DTaP/Tdap/Td Vaccine (1 - Tdap) 1959 Hepatitis B Screening 1966 Zoster Vaccine (1 of 2) 1998 Well Visit 65+ 2013 Covid-19 Vaccine (3 - 2023-2 5 season) 2024 08/09/2020, 07/12/2020 Osteoporosis Screening-Bone Density Scan 10/18/2024 10/18/2022 Influenza Vaccine (#1) 2025 , 03/16/2019, 03/19/2018, Additional history exists Fall Risk Assessment 02/18/2025 02/19/2024 Pneumococcal vaccine 65+ Completed 02/29/2020, 05/2017 Breast Cancer Screening-Mammogram Discontinued 023 Medical Devices Implanted Type Area [employer] Director Device Identifier Shelf Expiration Date Model / Serial / Lot Rojas [employer] Valve Aortic Trnscath Jennifer 3 Ultra Resilia 23mm [id number] - [id number] - [id number] Implanted:Qty: 1 on 12/22/2023 by Simeon Avelar MD at [facility] Prosthetic Valve N/A: Aortic Valve Rojas [employer] 11/10/2025 [id number] / [id number] / 1 [employer] 18f Manta Vascular Closure Device 2114 - S1 - [id number] Implanted:Qty: 1 on 12/22/2023 by Simeon Avelar MD at [facility] Vascular Closure Device Left: Femoral [employer] 01/12/20252114 1 / [id number] [employer] Device 5fr Closure Celt Acd Vascular Sterile Latex Free Disposable Bossman Kclt-05 - S0 - [id number] Implanted:Qty: 1 on 12/22/2023 by Simeon Avelar MD at [facility] Vascular Closure Device Right: Femoral [employer] 01/29/2026 KCLT-05 / 0 / [id number] [employer] Graft Patch Patch Vascular Repair 0.8x8cm 0.8x8cm Pfp0.8x8 - [id number] Implanted:Qty: 1 on 02/17/2024 by Cesar Negro MD at [facility] Left: Carotid [employer] 08/22/2025 PFP0.8X8 / / [id number] Procedures Procedure Name Priority Date/Time Associated Diagnosis [...] F with given history of screening. Postmenopausal [employer] Director/Model: [employer] SL (S/N [id number]) CLINICAL INFORMATION: Current height: 63.5 inches Maximum [...] Edd Bragg M.D. MF: RICH Report ID: [id number] Reading Location: [id number] Procedure Note Edd Bragg MD - 10/18/2022 EXAM DESCRIPTION: DEXA AXIAL SKELETON BONE DENSITY 1 OR MORE SITES REASON FOR STUDY: 72 y/o year old F with given history of screening. Postmenopausal [employer] Director/Model: [employer] SL (S/N [id number]) CLINICAL INFORMATION: Current height: 63.5 inches Maximum [...] Edd Bragg M.D. MF: RICH Report ID: [id number] Reading Location: [place] [address] Ryne Mcdonough MD IMG DXA PROCEDURES Final [...] suspicious finding in either breast on mammogram. Ryne Mcdonough MD IMG MAMMO PROCEDURES Final R esult from Last 3 Months or Most Recently Relevant to Health Maintenance Insurance [id number] [place] [address] OF [place] MEDICARE MEDICARE [place] Advance Directives For more information, please contact: [phone] * Full Code (Latest Code Status on File) Date Activated Date Inactivated Comments 02/17/2024 1:28 PM 02/19/2024 3:17 PM * Full Code Date Activated Date Inactivated Comments 12/30/2023 9:21 PM 01/02/2024 10:19 PM * Full Code Date Activated Date Inactivated Comments 12/22/2023 7:31 AM 12/23/2023 7:22 PM Care Teams Robotics Engineer Relationship Specialty Start Date End Date Ryne Mcdonough MD PCP - General 07/31/16 Simeon Avelar MD [address] [facility] [address] [place] [address] Consulting Physician Cardiology 12/10/23 Edd East MD [address] [place] [address] Referring Physician Cardiology 12/10/23 Marysol Tesfaye MD [address] [facility] [address] [place] [address] Consulting Physician Cardiothoracic Surgery 12/10/23 Ericka Zamora NP [address] [facility] [address] [place] [address] Nurse Practitioner Cardiothoracic Surgery 12/23/23 Cesar Negro MD [address] [facility] [address] [place] [address] Surgeon Vascular Surgery 01/02/24
== END 2024-11-22 13:17 | disposition home or self-care (01) ==
PROVIDERS: PCP Family Medicine; Visit Provider Otolaryngology Otolaryngology/Facial Plastic Surgery
DX: K21.9 Gastro-esophageal reflux disease without esophagitis (principal); R13.10 Dysphagia, unspecified; R13.12 Dysphagia, oropharyngeal phase
CPT/HCPCS: 74220